=== PATIENT | female | born 1990 | race African-American/Black ===

== ENCOUNTER 2016-08-31 02:57 | Observation (INO) | payer BC, MEDICAID ==
[2016-08-31] VITALS (148 sets, daily range): BP systolic 81–115; BP diastolic 35–69; PULSE 86–116; RESP 16–18; TEMP 98.2–98.8
[~2016-08-31 02:57] MED LIST: MACR100C2 PO; TRICTAB PO
[2016-08-31] MEDS: LACTATED RINGER'S 1000 ML INJ 1,000 ML IV SCH ×3 (03:34→10:52)
[2016-08-31] MEDS ORDERED: TERBUTALINE INJ 1 MG/ML AMP SQ PRN (03:45)
[2016-08-31] MEDS ORDERED: PROCHLORPERAZINE INJ 10 MG/2 ML VIAL IV PUSH ONE (03:45)
[2016-08-31] MEDS ORDERED: ONDANSETRON HCL 4 MG/2 ML VIAL IV ONE (03:45)
[2016-08-31 04:36] LABS: BACTERIA, URINE OCC /hpf; BLOOD, URINE NEG (NEG); COMMENT (UR) CULT NOT INDICATED; CULTURE IF INDICATED CULT NOT INDICATED; GLUCOSE,URINE NEG (NEG); GRANULAR CAST, URINE 6 /lpf; HYALINE CAST, URINE 1 /lpf (RARE); KETONE, URINE NEG (NEG); MUCUS URINE FEW /lpf (OCC); NITRITE,URINE NEG (NEG); SQUAMOUS EPITHELIAL CELL URINE 7 /hpf (0-5); URINE COLOR YELLOW (YELLW/STRAW)
[2016-08-31] MEDS ORDERED: PROM25TA5 PO (05:08)
[2016-08-31] MEDS ORDERED: PROM1SUP7 RECTAL (05:08)
--- NOTE | 2016-08-31 05:08 | PD ---
HPI Chief Complaint Nausea and vomiting abdominal pain in a twin gestation Date Seen: Aug 31, 2016 Time Seen: 03:30 Travel History International Travel<30 Days: No Contact w/Intl Traveler<30Days: No Known Affected Area: No History of Present Illness HPI Patient is 26-year-old black female 25 weeks twins PCS[2] seen by Kathie Oropeza for care, who presents complaining of nausea and vomiting since about 1 AM and abdominal pain since same, no vaginal bleeding or leakage of fluid, babies are active, heart rate tracings are reactive 25 weeks, she is deepak every 3 minutes Para: 2 : 3 History Obstetric History Obstetric History 2 C-sections, history of at 36 weeks Past Surgical History Narrative Surgical 2 C-sections Family History Family History: Negative Social History Alcohol Use: No Tobacco Use: No Substance Abuse: No Allergies-Medications (Allergen,Severity, Reaction): Coded Allergies: Adhesives (Verified Allergy, Severe, 04/22/16) Latex (Verified Allergy, Severe, 04/22/16) Home Meds Active Scripts Promethazine Supp (Phenergan Supp)25 Mg Supp25 Mg RECTAL Q6H PRN (NAUSEA OR VOMITING) #6 SUPP Ref 0 Prov:Russell Vallejo II, MD 08/31/16 Promethazine (Phenergan)25 Mg Tab25 Mg PO Q6H PRN (Nausea/Vomiting) #30 TAB Ref 0 Prov:Russell Vallejo II, MD 08/31/16 Vit-Ferrous Fumarate ()1 Tab Tab1 Tab PO DAILY #30 TAB Ref 0 Prov:Griselda Holguin MD 04/22/16 Nitrofurantoin Monohydrate Macrocrystals (Macrobid)100 Mg [id number] Mg PO BID 7 Days Ref 0 Prov:Griselda Holguin MD 04/22/16 Nitrofurantoin Monohydrate Macrocrystals (Macrobid)100 Mg [id number] Mg PO BID 7 Days Ref 0 Prov:Shamika Cardoso DO 03/31/16 Review of Systems General / Constitutional: No: Fever, Weight Gain, Chills, Other Eyes: No: Diploplia, Blurred Vision, Visual changes, Pain, Photophobia HENT: No: Headaches, Vertigo, Lightheadedness Cardiovascular: No: Irregular Rhythm, Chest Pain or Discomfort, Palpitations, Tachycardia, Syncope, Varicosities, Edema, Cyanosis Respiratory: No: Cough, Short of Breath, Other Gastrointestinal: Nausea, Vomiting, Abdominal Pain, No: Diarrhea Genitourinary: No: Decreased Urinary Output, Oliguria Musculoskeletal: No: Limited ROM, Weakness, Cramping, Edema, Pain Skin: No Rash, No Itching, No Dryness, No Lumps, No Change in Pigmentation, No Change in Nails, No Alopecia, No Lesions Neurologic: No: Weakness, Dizziness, Syncope, Focal Abnormalities, Coordination Problem, Headache, Slurred Speech, Seizures Psychiatric: No: Depression, Suicidal Ideations, Homicidal Ideation Endocrine: No: Heat Intolerance, Cold Intolerance, Polydipsia, Polyuria, Other Physical Exam Vital Signs Date Time Temp Pulse Resp B/P Pulse Ox O2 Delivery O2 Flow Rate FiO2 08/31/16 04:15 98.4 08/31/16 03:24 95 101/69 Narrative GENERAL: Well-nourished, well-developed patient. SKIN: Warm and dry. HEAD: Normocephalic and atraumatic. EYES: No scleral icterus. No injection or drainage. ENT: No nasal drainage noted. Mucous membranes pink. Airway patent. NECK: Supple, trachea midline. No JVD. CARDIOVASCULAR: Regular rate and rhythm without murmurs, gallops, or rubs. RESPIRATORY: Breath sounds equal bilaterally. No accessory muscle use. BREASTS: Bilateral exam showed no masses , no retractions, no nipple discharge. ABDOMEN/GI: Abdomen soft, non-tender, bowel sounds present, no rebound, no guarding Gravid to [-30] weeks size Fundal Height: [30-] GENITOURINARY: External Genitalia: intact and normal in appearance BUS glands: [-] Cervix: [-Closed] Dilatation: [-] Closed Effacement: [-] Thick Station: [-3] Membranes: [intact ] Uterine Contractions: [q 3 min-] FHT's: Category: [1-] Baseline: [133/135] Reactive: [yes-] Variability: [mod-] Decels: [-none] EXTREMITIES: No cyanosis or edema. BACK: Nontender without obvious deformity. No CVA tenderness. NEUROLOGICAL: Awake and alert. Motor and sensory grossly within normal limits. Five out of 5 muscle strength in all muscle groups. Normal speech. Data Data Orders Vital Signs (Adult) .ON ADMISSION (08/31/16 03:34) ^ Labor Status (08/31/16 03:34) Urinalysis - C+S If Indicated (08/31/16 03:34) Fibronectin (08/31/16 03:34) Lactated Ringer's 1000 Ml Inj (Lr 1000 M (08/31/16 03:34) Ondansetron Inj (Zofran Inj) (08/31/16 03:45) Terbutaline Inj (Brethine Inj) (08/31/16 03:45) Fentanyl Inj (Fentanyl Inj) (08/31/16 03:45) Prochlorperazine Inj (Compazine Inj) (08/31/16 03:45) Labs Laboratory Tests Test 08/31/16 08/31/16 03:40 03:55 Urine Color YELLOW Urine Turbidity CLOUDY Urine pH 6.0 Urine Specific [place] 1.027 Urine Protein 30 Urine Glucose (UA) NEG Urine Ketones NEG Urine Occult Blood NEG Urine Nitrite NEG Urine Bilirubin NEG Urine Urobilinogen LESS THAN 2.0 Urine Leukocyte Esterase MOD Urine RBC 2 Urine WBC 6 Urine Squamous Epithelial 7 Cells Urine Bacteria OCC Urine Hyaline Casts 1 Urine Granular Casts 6 Urine Mucus FEW Urine Yeast (Budding) RARE Microscopic Urinalysis Comment CULT NOT INDICATED Fibronectin NEGATIVE MDM Interpretation(s) The patient is 26-year-old black female previous 2 at 25 weeks with twin gestation she is followed by Kathie Oropeza for care, she presents complaining of nausea and vomiting and abdominal pain since about 1 AM today, no bleeding or ruptured membranes noted, she is deepak every 3 minutes. Plan Plan for the patient was tocolyse contractions seen, she was given IV liter of fluid, subcutaneous terbutaline 2 doses, IV Zofran and Compazine for her stomach. Patient refused IV narcotic. Contractions have diminished greatly with these measures and her fibronectin is negative, however contractions persist even though they are small would plan to continue to tocolyse as needed. If contractions decreased to the level patient be discharged home she will go home with Phenergan by mouth and suppository for nausea and vomiting, bedrest as much as possible, increased oral hydration at home use Tylenol liberally for discomfort. Heating pad on lower abdomen or hot bath would be helpful Diagnosis Diagnosis: Primary Impression: Twin Additional Impressions: Nausea and vomiting during Threatened labor Scripts Promethazine Supp (Phenergan Supp)25 Mg Supp25 Mg RECTAL Q6H PRN (NAUSEA OR VOMITING) #6 SUPP Ref 0 Prov:Russell Vallejo II, MD 08/31/16 Promethazine (Phenergan)25 Mg Tab25 Mg PO Q6H PRN (Nausea/Vomiting) #30 TAB Ref 0 Prov:Russell Vallejo II, MD 08/31/16 Russell Vallejo II, MD Aug 31, 2016 05:08
[2016-08-31] MEDS: NIFEdipine 10 MG CAP PO SCH ×2 (05:45→06:05)
[2016-08-31] MEDS ORDERED: LACTATED RINGER'S 1000 ML INJ 1,000 ML IV SCH ×2 (06:39→06:45)
[2016-08-31] MEDS ORDERED: MAGNESIUM SULFATE 40 GM PREMIX 1,000 ML IV SCH (06:39)
[2016-08-31] MEDS ORDERED: MAGNESIUM SULFATE 4 GM PREMIX 100 ML IV ONE (06:45)
[2016-08-31] MEDS ORDERED: ACETAMINOPHEN 325 MG TAB PO PRN (06:45)
[2016-08-31] MEDS ORDERED: CALCIUM GLUCONATE 10% 1 GM/10 ML VIAL IV PRN ×3 (06:45→07:30)
[2016-08-31] MEDS ORDERED: SODIUM CHLORIDE 0.9% FLUSH 10 ML FLUSH IV FLUSH PRN ×3 (06:45→07:30)
[2016-08-31] MEDS ORDERED: ONDANSETRON HCL 4 MG/2 ML VIAL IV PRN (06:45)
[2016-08-31] MEDS ORDERED: BETAMETHASONE SOD PHOS/ACETATE SUSP 30 MG/5 ML VIAL IM SCH (06:45)
--- NOTE | 2016-08-31 06:52 | HHI.HP ---
History & Physical H&P Patient Name: Anastacio Sun Unit Number: [id number] Date of : 1990 Patient Status: Registered Emergency Room Attending Doctor: Russell Vallejo II, MD HPI HPI Chief Complaint Nausea and vomiting abdominal pain in a twin gestation Date Seen: Aug 31, 2016 Time Seen: 03:30 Travel History International Travel<30 Days: No Contact w/Intl Traveler<30Days: No Known Affected Area: No History of Present Illness HPI Patient is 26-year-old black female 25 weeks twins PCS[2] seen by Kathie Oropeza for care, who presents complaining of nausea and vomiting since about 1 AM and abdominal pain since same, no vaginal bleeding or leakage of fluid, babies are active, heart rate tracings are reactive 25 weeks, she is deepak every 3 minutes Para: 2 : 3 History (Limited) History Obstetric History Obstetric History 2 C-sections, history of at 36 weeks Past Surgical History Narrative Surgical 2 C-sections Family History Family History: Negative Social History Alcohol Use: No Tobacco Use: No Substance Abuse: No Allergies-Medications Allergies-Medications (Allergen,Severity, Reaction): Coded Allergies: Adhesives (Verified Allergy, Severe, 04/22/16) Latex (Verified Allergy, Severe, 04/22/16) Home Meds Active Scripts Vit-Ferrous Fumarate ()1 Tab Tab1 Tab PO DAILY #30 TAB Ref 0 Prov:Griselda Holguin MD 04/22/16 Nitrofurantoin Monohydrate Macrocrystals (Macrobid)100 Mg [id number] Mg PO BID 7 Days Ref 0 Prov:Griselda Holguin MD 04/22/16 Nitrofurantoin Monohydrate Macrocrystals (Macrobid)100 Mg [id number] Mg PO BID 7 Days Ref 0 Prov:Shamika Cardoso DO 03/31/16 ROS Review of Systems General / Constitutional: No: Fever, Weight Gain, Chills, Other Eyes: No: Diploplia, Blurred Vision, Visual changes, Pain, Photophobia HENT: No: Headaches, Vertigo, Lightheadedness Cardiovascular: No: Irregular Rhythm, Chest Pain or Discomfort, Palpitations, Tachycardia, Syncope, Varicosities, Edema, Cyanosis Respiratory: No: Cough, Short of Breath, Other Gastrointestinal: Nausea, Vomiting, Abdominal Pain, No: Diarrhea Genitourinary: No: Decreased Urinary Output, Oliguria Musculoskeletal: No: Limited ROM, Weakness, Cramping, Edema, Pain Skin: No Rash, No Itching, No Dryness, No Lumps, No Change in Pigmentation, No Change in Nails, No Alopecia, No Lesions Neurologic: No: Weakness, Dizziness, Syncope, Focal Abnormalities, Coordination Problem, Headache, Slurred Speech, Seizures Psychiatric: No: Depression, Suicidal Ideations, Homicidal Ideation Endocrine: No: Heat Intolerance, Cold Intolerance, Polydipsia, Polyuria, Other Physical Exam Physical Exam Vital Signs Date Time Temp Pulse Resp B/P Pulse Ox O2 Delivery O2 Flow Rate FiO2 08/31/16 04:15 98.4 08/31/16 03:24 95 101/69 Narrative GENERAL: Well-nourished, well-developed patient. SKIN: Warm and dry. HEAD: Normocephalic and atraumatic. EYES: No scleral icterus. No injection or drainage. ENT: No nasal drainage noted. Mucous membranes pink. Airway patent. NECK: Supple, trachea midline. No JVD. CARDIOVASCULAR: Regular rate and rhythm without murmurs, gallops, or rubs. RESPIRATORY: Breath sounds equal bilaterally. No accessory muscle use. BREASTS: Bilateral exam showed no masses , no retractions, no nipple discharge. ABDOMEN/GI: Abdomen soft, non-tender, bowel sounds present, no rebound, no guarding Gravid to [-30] weeks size Fundal Height: [30-] GENITOURINARY: External Genitalia: intact and normal in appearance BUS glands: [-] Cervix: [-Closed] Dilatation: [-] Closed Effacement: [-] Thick Station: [-3] Membranes: [intact ] Uterine Contractions: [q 3 min-] FHT's: Category: [1-] Baseline: [133/135] Reactive: [yes-] Variability: [mod-] Decels: [-none] EXTREMITIES: No cyanosis or edema. BACK: Nontender without obvious deformity. No CVA tenderness. NEUROLOGICAL: Awake and alert. Motor and sensory grossly within normal limits. Five out of 5 muscle strength in all muscle groups. Normal speech. Data Data Data Orders Vital Signs (Adult) .ON ADMISSION (08/31/16 03:34) ^ Labor Status (4/13/17 03:34) Urinalysis - C+S If Indicated (08/31/16 03:34) Fibronectin (08/31/16 03:34) Lactated Ringer's 1000 Ml Inj (Lr 1000 M (08/31/16 03:34) Ondansetron Inj (Zofran Inj) (08/31/16 03:45) Terbutaline Inj (Brethine Inj) (08/31/16 03:45) Fentanyl Inj (Fentanyl Inj) (08/31/16 03:45) Prochlorperazine Inj (Compazine Inj) (08/31/16 03:45) Labs Laboratory Tests Test 08/31/16 08/31/16 03:40 03:55 Urine Color YELLOW Urine Turbidity CLOUDY Urine pH 6.0 Urine Specific [place] 1.027 Urine Protein 30 Urine Glucose (UA) NEG Urine Ketones NEG Urine Occult Blood NEG Urine Nitrite NEG Urine Bilirubin NEG Urine Urobilinogen LESS THAN 2.0 Urine Leukocyte Esterase MOD Urine RBC 2 Urine WBC 6 Urine Squamous Epithelial 7 Cells Urine Bacteria OCC Urine Hyaline Casts 1 Urine Granular Casts 6 Urine Mucus FEW Urine Yeast (Budding) RARE Microscopic Urinalysis Comment CULT NOT INDICATED Fibronectin NEGATIVE MDM MDM Interpretation(s) The patient is 26-year-old black female previous 2 at 25 weeks with twin gestation she is followed by Kathie Oropeza for care, she presents complaining of nausea and vomiting and abdominal pain since about 1 AM today, no bleeding or ruptured membranes noted, she is deepak every 3 minutes. Plan Plan for the patient was tocolyse contractions seen, she was given IV liter of fluid, subcutaneous terbutaline 2 doses, IV Zofran and Compazine for her stomach. Patient refused IV narcotic. Contractions have diminished greatly with these measures and her fibronectin is negative, however contractions persist even though they are small would plan to continue to tocolyse as needed. Unfortunately CTXs have persisted inspitee of IVF, Terb, procardia po therefore admission and Mag sulfate tocolysis indicated Diagnosis Diagnosis: Primary Impression: Twin Additional Impressions: Nausea and vomiting during Threatened labor Scripts Promethazine Supp (Phenergan Supp)25 Mg Supp25 Mg RECTAL Q6H PRN (NAUSEA OR VOMITING) #6 SUPP Ref 0 Prov:Russell Vallejo II, MD 08/31/16 Promethazine (Phenergan)25 Mg Tab25 Mg PO Q6H PRN (Nausea/Vomiting) #30 TAB Ref 0 Prov:Russell Vallejo II, MD 08/31/16 Russell Vallejo II, MD Aug 31, 2016 05:08 Russell Vallejo II, MD Aug 31, 2016 06:52
[2016-08-31 07:46] LABS: AUTOMATED NEUTROPHIL # 7.9 TH/MM3 (1.8-7.7); BASOPHIL % 0.1 % (0.0-2.0); EOSINOPHIL % 0.3 % (0.0-4.0); HEMATOCRIT 29.4 % (35.0-46.0); HEMO FLAGS DIFF FINAL; LYMPH % 11.4 % (9.0-44.0); LYMPHOCYTE # 1.1 TH/MM3 (1.0-4.8); MEAN CELL VOLUME 82.5 FL (80.0-100.0); MONO % 8.4 % (0.0-8.0); NEUT % 79.8 % (16.0-70.0); PLATELET COUNT 124 TH/MM3 (150-450); RED BLOOD COUNT 3.57 MIL/MM3 (4.00-5.30); RED CELL DISTRIBUTION WIDTH 12.9 % (11.6-17.2); WHITE BLOOD COUNT 9.9 TH/MM3 (4.0-11.0)
[2016-08-31 08:05] LABS: AMPHETAMINE, URINE NEG (NEG); BARBITURATES, URINE NEG (NEG); COCAINE, URINE NEG (NEG)
[2016-08-31] MEDS ORDERED: SODIUM CHLORIDE 0.9% FLUSH 10 ML FLUSH IV FLUSH SCH ×3 (09:00)
[2016-08-31] MEDS: AMPICILLIN INJ 2,000 MG in SODIUM CHLORIDE 0.9% INJ 100 ML IV SCH ×2 (12:57→18:05)
--- NOTE | 2016-08-31 15:01 | PD.LABORPN ---
Subjective Subjective pt doing well. on Mag at 3g/hour. denies feeling contractions. +FM no vag bleeding Objective Vital Signs Vital Signs Date Time Temp Pulse Resp B/P Pulse Ox O2 Delivery O2 Flow Rate FiO2 08/31/16 14:00 86 08/31/16 14:00 94 103/55 08/31/16 13:55 95 08/31/16 13:54 18 08/31/16 13:50 95 08/31/16 13:45 97 08/31/16 13:45 95 08/31/16 13:40 92 08/31/16 13:35 99 08/31/16 13:35 95 08/31/16 13:30 98 08/31/16 13:30 100 08/31/16 13:25 98 08/31/16 13:25 98 08/31/16 13:20 100 08/31/16 13:15 92 08/31/16 13:10 97 08/31/16 13:05 108 08/31/16 13:03 16 08/31/16 13:00 98 08/31/16 13:00 95 83/35 08/31/16 12:55 95 08/31/16 12:50 97 08/31/16 12:45 98 08/31/16 12:40 96 08/31/16 12:35 94 08/31/16 12:30 98 08/31/16 12:25 100 08/31/16 12:20 100 08/31/16 12:15 96 08/31/16 12:10 94 08/31/16 12:05 93 08/31/16 12:00 97 87/37 08/31/16 12:00 94 08/31/16 11:55 99 08/31/16 11:50 96 08/31/16 11:49 16 08/31/16 11:45 109 08/31/16 11:40 99 08/31/16 11:35 100 08/31/16 11:30 100 08/31/16 11:25 103 08/31/16 11:20 107 08/31/16 11:15 98 08/31/16 11:10 99 08/31/16 11:05 95 08/31/16 11:00 96 08/31/16 11:00 93 81/43 08/31/16 11:00 94 4/13/17 10:58 16 17 10:55 89 17 10:50 98 17 10:50 100 17 10:45 102 17 10:40 99 17 10:40 99 08/31/17 10:35 100 17 10:35 100 17 10:30 96 17 10:30 95 17 10:30 96 84/47 17 10:25 95 17 10:25 96 17 10:20 100 17 10:20 98 17 10:15 96 17 10:15 93 08/31/16 10:15 96 93/44 17 10:10 95 08/31/16 10:10 94 08/31/16 10:05 96 08/31/16 10:05 95 08/31/16 10:00 96 84/42 17 10:00 98 08/31/16 10:00 93 17 09:55 104 08/31/16 09:55 104 08/31/16 09:50 98 08/31/16 09:50 96 08/31/16 09:45 94 08/31/16 09:45 94 83/39 17 09:45 98 08/31/16 09:40 98 08/31/16 09:40 98 08/31/16 09:38 16 08/31/16 09:35 91 08/31/16 09:35 91 17 09:30 87 17 09:30 87 92/58 17 09:30 92 08/31/16 09:25 94 08/31/16 09:25 95 08/31/16 09:20 96 08/31/16 09:20 96 08/31/16 09:15 95 87/37 08/31/16 09:15 98 08/31/16 09:15 96 08/31/16 09:10 104 08/31/16 09:10 104 08/31/16 09:05 97 08/31/16 09:05 16 08/31/16 09:05 98 08/31/16 09:00 90 08/31/16 09:00 95 16 98/53 08/31/16 09:00 98.4 08/31/16 09:00 100 08/31/16 08:55 96 08/31/16 08:55 95 08/31/16 08:52 92 101/59 08/31/16 08:50 99 08/31/16 07:10 116 08/31/16 07:05 116 08/31/16 07:00 114 Objective Pelvic Exam: Cervix: [posterior/firm] Dilatation: closed Effacement: 0 Station: -3 Presentation: ceph A Membranes: intact Uterine Contractions: irritability with irregular contractions FHT's: Category: 1 for A and B Assessment/Plan Assessment and Plan 26 y/o with twin IUP at 25.5 wks 1. contractions--persistent contractions despite hydration, terbutaline, and now Magnesium tocolysis. however, cervix is closed, FFN is neg , and pt is not feeling contractions. there is no evidence of PTL at this time. will decrease magnesium to 2g/hour and continue to monitor 2. prematurity--s/p 1/2 BMS, u/s shows A ceph 1094g, B breech 1212g, mild poly for both 3. previous CD x 2 Alonzo Lopez MD Aug 31, 2016 15:01
[2016-09-01] VITALS (29 sets, daily range): BP systolic 79–105; BP diastolic 33–52; PULSE 88–103; RESP 16–18; TEMP 97.6–98.1
[2016-09-01] MEDS: AMPICILLIN INJ 2,000 MG in SODIUM CHLORIDE 0.9% INJ 100 ML IV SCH ×4 (06:00→12:37)
[2016-09-01] MEDS: LACTATED RINGER'S 1000 ML INJ 1,000 ML IV SCH (06:21)
--- NOTE | 2016-09-01 09:11 | HHI.DCPOC ---
Discharge Care Plan Diagnosis: (1) Nausea and vomiting during (2) Twin (3) contractions Report Symptoms to Your Doctor -Temperate above 100.5 degrees -Redness, of incision or excessive or foul smelling drainage -Unusual pain or calf pain -Increased vaginal bleeding -Painful or difficulty urinating -Feelings of extreme sadness or anxiety after 2 weeks Goals to Promote Your Health * To prevent worsening of your condition and complications * To maintain your health at the optimal level Directions to Meet Your Goals Take your medications as prescribed Follow your dietary instruction Follow activity as directed Ensure plenty of rest for recovery Drink fluids for hydration Keep your appointments as scheduled Take your immunizations and boosters as scheduled If your symptoms worsen call your PCP, if no PCP go to Urgent Care Center or Emergency Room Smoking is Dangerous to Your Health. Avoid second hand smoke Call the 24-hour crisis hotline for domestic abuse at Reshma Fierro MD R1 Sep 01, 2016 09:11
--- NOTE | 2016-09-01 09:13 | PD.OB.ANTE ---
Subjective Diagnosis: (1) Twin Diagnosis: Secondary (2) contractions Diagnosis: Principal Interval History Mrs. Sun was afebrile with stable vital signs overnight; patient denies complaints this morning. Patient is not feeling any abdominal pain suggestive of contractions. No shortness of breath or dysuria reported. No calf pain. ( Severino Ward MD R2) Objective Vital Signs Vital Signs Date Time Temp Pulse Resp B/P Pulse Ox O2 Delivery O2 Flow Rate FiO2 09/01/16 07:00 92 09/01/16 07:00 91 90/45 09/01/16 06:55 93 09/01/16 06:50 92 09/01/16 06:45 94 09/01/16 06:40 103 09/01/16 06:30 92 09/01/16 06:25 95 09/01/16 06:20 96 09/01/16 06:15 93 09/01/16 06:10 97 09/01/16 06:05 18 09/01/16 06:05 94 09/01/16 06:00 99 86/41 09/01/16 05:05 18 09/01/16 05:00 94 82/36 09/01/16 04:17 93 95/44 09/01/16 04:00 90 79/33 09/01/16 03:47 18 09/01/16 03:45 88 09/01/16 03:40 91 09/01/16 03:34 94 09/01/16 03:34 94/42 09/01/16 03:05 18 09/01/16 03:05 97.6 09/01/16 03:00 93 87/35 09/01/16 02:05 18 09/01/16 02:00 92 105/52 09/01/16 01:05 18 09/01/16 01:00 97 101/45 09/01/16 00:05 18 09/01/16 00:00 102 91/45 08/31/16 23:05 98.8 18 08/31/16 23:00 92 94/40 08/31/16 22:05 18 08/31/16 22:00 95 97/46 08/31/16 21:05 18 08/31/16 21:00 92 105/58 08/31/16 20:00 98 104/55 08/31/16 19:35 103 08/31/16 19:34 18 08/31/16 19:30 102 08/31/16 19:25 98 08/31/16 19:00 99 08/31/16 19:00 96 115/60 08/31/16 18:55 99 08/31/16 18:52 18 08/31/16 18:50 102 08/31/16 18:45 99 08/31/16 18:40 99 08/31/16 18:35 99 08/31/16 18:30 96 08/31/16 18:25 101 08/31/16 18:20 98 08/31/16 18:15 99 08/31/16 18:10 102 08/31/16 18:05 96 08/31/16 18:03 18 08/31/16 18:00 96 08/31/16 18:00 110/64 08/31/16 18:00 97 08/31/16 17:55 96 08/31/16 17:50 103 08/31/16 17:45 100 08/31/16 17:40 98 08/31/16 17:35 97 08/31/16 17:30 101 08/31/16 17:25 99 08/31/16 17:20 96 08/31/16 17:15 99 08/31/16 17:10 101 08/31/16 17:05 99 08/31/16 17:05 18 08/31/16 17:00 94 100/58 08/31/16 17:00 99 08/31/16 16:55 98 08/31/16 16:50 95 08/31/16 16:45 95 08/31/16 16:40 95 08/31/16 16:35 96 08/31/16 16:30 99 08/31/16 16:25 101 08/31/16 16:20 99 08/31/16 16:15 102 08/31/16 16:10 100 08/31/16 16:05 92 08/31/16 16:04 18 08/31/16 16:00 99 08/31/16 16:00 94 106/55 08/31/16 15:55 97 17 15:50 91 17 15:45 91 17 15:40 94 17 15:35 95 4/13/17 15:30 95 1317 15:25 101 17 15:20 95 17 15:15 98 17 15:10 97 17 15:05 108 17 15:00 97 114/68 17 15:00 96 17 14:55 98 08/31/16 14:55 98.2 18 08/31/16 14:50 99 17 14:45 99 17 14:40 97 17 14:35 98 17 14:30 98 17 14:25 98 08/31/16 14:20 106 08/31/16 14:15 101 08/31/16 14:10 94 08/31/16 14:05 93 08/31/16 14:00 86 08/31/16 14:00 94 103/55 17 13:55 95 17 13:54 18 08/31/16 13:50 95 17 13:45 97 17 13:45 95 17 13:40 92 17 13:35 99 17 13:35 95 17 13:30 98 17 13:30 100 17 13:25 98 17 13:25 98 17 13:20 100 17 13:15 92 17 13:10 97 17 13:05 108 08/31/16 13:03 16 08/31/16 13:00 98 17 13:00 95 83/35 17 12:55 95 17 12:50 97 17 12:45 98 1317 12:40 96 17 12:35 94 17 12:30 98 13/17 12:25 100 17 12:20 100 17 12:15 96 17 12:10 94 17 12:05 93 17 12:00 97 87/37 1317 12:00 94 08/31/16 11:55 99 08/31/16 11:50 96 08/31/16 11:49 16 17 11:45 109 17 11:40 99 17 11:35 100 17 11:30 100 17 11:25 103 08/31/16 11:20 107 08/31/16 11:15 98 08/31/16 11:10 99 08/31/16 11:05 95 08/31/16 11:00 96 08/31/16 11:00 93 81/43 08/31/16 11:00 94 08/31/16 10:58 16 08/31/16 10:55 89 08/31/16 10:50 98 08/31/16 10:50 100 08/31/16 10:45 102 08/31/16 10:40 99 08/31/16 10:40 99 08/31/16 10:35 100 08/31/16 10:35 100 08/31/16 10:30 96 08/31/16 10:30 95 17 10:30 96 84/47 17 10:25 95 08/31/16 10:25 96 08/31/16 10:20 100 08/31/16 10:20 98 08/31/16 10:15 96 08/31/16 10:15 93 08/31/16 10:15 96 93/44 08/31/16 10:10 95 08/31/16 10:10 94 08/31/16 10:05 96 08/31/16 10:05 95 08/31/16 10:00 96 84/42 08/31/16 10:00 98 08/31/16 10:00 93 08/31/16 09:55 104 08/31/16 09:55 104 08/31/16 09:50 98 08/31/16 09:50 96 08/31/16 09:45 94 08/31/16 09:45 94 83/39 17 09:45 98 08/31/16 09:40 98 08/31/16 09:40 98 08/31/16 09:38 16 08/31/16 09:35 91 08/31/16 09:35 91 4/13/17 09:30 87 08/31/16 09:30 87 92/58 08/31/16 09:30 92 08/31/16 09:25 94 08/31/16 09:25 95 08/31/16 09:20 96 08/31/16 09:20 96 08/31/16 09:15 95 87/37 08/31/16 09:15 98 08/31/16 09:15 96 Intake & Output 09/01/16 09/01/16 07:00 19:00 Intake Total 1096 ml Balance 1096 ml Intake IV Total 1096 ml Physical Exam GENERAL: Well-nourished, well-developed patient. CARDIOVASCULAR: Regular rate and rhythm without murmurs RESPIRATORY: CTAB, normal rate EXTREMITIES: No cyanosis or edema, non-tender, without signs of DVT. ABDOMEN/GI: Abdomen soft, non-tender. Gravid Pelvic Exam: (399) Cervix: posterior/firm Dilatation: closed Effacement: 0 Station: -3 Presentation: cephalic A Membranes: intact Uterine Contractions: irritability with irregular contractions FHT's: Category: 1 for A and B (Severino Ward MD R2) Assessment and Plan Problem List: (1) contractions Status: Acute (2) Twin Status: Acute Assessment & Plan: 26 y/o with twin IUP at 25.6 wks 1. contractions Impression: No evidence of PTL at this time. Persistent contractions ( patient not feeling contractions) on EFM despite hydration, terbutaline, and Magnesium tocolysis. Cervix is closed, FFN is neg. -Magnesium decreased to 2gm/hr -Continue Ampicillin q6hrs 2. prematurity -Patient has received 2 doses Betamethasone 12mg (08/31 at 0915 , 09/01 at 0627) 3. Twins- US 08/31- A (presenting)- cephalic, 1094g, size appropriate. 3 vessel. No previa. Mild Poly B- Breech, 1212g, size appropriate, 3 vessel, mild Poly 4. Previous CD x 2 (Severino Ward MD R2) Assessment and Plan The exam, history, and the medical decision-making described in the above note were completed with the assistance of the resident provider. I reviewed and agree with the findings presented. I attest that I had a [id number] encounter with the patient on the same day, and personally performed and documented my assessment and findings in the medical record. Plan: repeat exam after BMS completed. If cervix unchanged, d/c mag and monitor patient. If no evidence of PTL, d/c home. (Alonzo Lopez MD) Severino Ward MD R2 Sep 01, 2016 09:13 Alonzo Lopez MD Sep 01, 2016 11:23
[2016-09-01] MEDS ORDERED: PROM25TA5 PO (09:15)
[2016-09-04 08:25] LABS: BATH SALTS (MDPV) UR NEG (NEG); ECSTASY (MDMA) UR NEG (NEG); GABAPENTIN UR NEG (NEG); HEROIN (6-ACETYLMORPHINE) UR NEG (NEG); HYDROMORPHONE U NEG (NEG); K2 SPICE UR NEG (NEG); OBMETHADONE UR NEG (NEG); OXYCODONE (PERCODAN) NEG (NEG); PHENCYCLIDINE URINE NEG (NEG)
== END 2016-09-01 15:29 | disposition home or self-care (01) ==
LOC: HOBED 02:57 → H2EB 06:45
PROVIDERS: ADMIT Obstetrics & Gynecology Maternal & Fetal Medicine; ATTEND Obstetrics & Gynecology Maternal & Fetal Medicine
DX: O47.02 False labor before 37 completed weeks of gestation, second trimester (principal); O21.2 Late vomiting of pregnancy; O30.002 Twin pregnancy, unspecified number of placenta and unspecified number of amniotic sacs, second trimester; O34.219 Maternal care for unspecified type scar from previous cesarean delivery; Z3A.25 25 weeks gestation of pregnancy; Z91.040 Latex allergy status
CPT/HCPCS: 76811; 76812; 76817; 80307; 80348; 81001; 82731; 85025; 96361; 96372; 96374; 99285; G0378; G0481; J0290; J0702; J0780; J2405; J3105; J3475; J7120; G0480

== ENCOUNTER 2016-10-12 08:26 | Emergency (ER) | payer BC, MEDICAID ==
[~2016-10-12] VITALS: Ht 165.1 cm; Wt 68.5 kg
[~2016-10-12 08:26] MED LIST changes: -MACR100C2 PO; +PROM25TA5 PO
[2016-10-12 10:13] LABS: BACTERIA, URINE OCC /hpf; BLOOD, URINE NEG (NEG); COMMENT (UR) CULT NOT INDICATED; CULTURE IF INDICATED CULT NOT INDICATED; GLUCOSE,URINE NEG (NEG); KETONE, URINE NEG (NEG); NITRITE,URINE NEG (NEG); SQUAMOUS EPITHELIAL CELL URINE <1 /hpf (0-5); URINE COLOR LIGHT-YELLOW (YELLW/STRAW)
[2016-10-12] MEDS ORDERED: fentaNYL CITRATE 250 MCG/5 ML AMP IV PUSH ONE (10:15)
[2016-10-12] MEDS ORDERED: LACTATED RINGER'S 1000 ML INJ 1,000 ML IV SCH (10:15)
[2016-10-12] MEDS ORDERED: TERBUTALINE INJ 1 MG/ML AMP SQ ONE (10:15)
[2016-10-12 10:33] LABS: HEMATOCRIT 29.7 % (35.0-46.0); MEAN CELL VOLUME 80.2 FL (80.0-100.0); MEAN CORPUSCULAR HEMOGLOBIN 26.2 PG (27.0-34.0); MEAN CORPUSCULAR HGB CONC 32.7 % (32.0-36.0); RED CELL DISTRIBUTION WIDTH 15.4 % (11.6-17.2); WHITE BLOOD COUNT 4.8 TH/MM3 (4.0-11.0)
[2016-10-12 10:38] LABS: AMPHETAMINE, URINE NEG (NEG); BARBITURATES, URINE NEG (NEG); COCAINE, URINE NEG (NEG)
[2016-10-12 10:59] LABS: REVIEW FLAG FINAL
--- NOTE | 2016-10-12 11:14 | PD ---
HPI Chief Complaint Pelvic pain Date Seen: October 12, 2016 Time Seen: 10:30 Travel History International Travel<30 Days: No Contact w/Intl Traveler<30Days: No Known Affected Area: No History of Present Illness HPI Patient is a 26-year-old at 35 weeks and 5 days with twin gestation and 2 prior C-sections who presents with pelvic pain and pain along her scar. Patient reports that her pelvic pain started about 2 weeks ago. She describes the pain as feeling sore. At its worst it's a 7 out of 10. During our interview, acid about a 5 out of 10. She describes this pain is exacerbated and worse with movement, especially side to side movement or standing up. Patient is also complaining of pain along her scar. She describes this pain as starting at 6 AM this morning, feeling like ripping or tearing, 7 out of 10 at its worst, currently 5 out of 10, not exacerbated by movement, not getting any better or worse. She denies any leakage of fluid or vaginal bleeding. She endorses movement. Patient was getting her care through [facility] but transferred to Dr. Patino in [place]. At first when she presented, she did not endorse any contractions. But after a few were noted on the monitor, patient reported that she was feeling the contractions. Para: 2 : 3 Last Menstrual Period: October 12, 2016 History Past Medical History Narrative Medical Patient reports a history of childhood asthma, but hasn't required any medication since 13 years old. Obstetric History Obstetric History Patient has a history of 2 prior C-sections. She was seen this here in the [facility] ED by Dr. Vallejo for nausea, vomiting, abdominal pain, found to have contractions, treated with betamethasone 2, magnesium sulfate, terbutaline, fentanyl, IV fluids. Past Surgical History Narrative Surgical 2 prior C-sections. Last April 2015. Family History Narrative Family History Patient reports a maternal history of asthma and heart murmur and thyroid problem. Social History Narrative Social History Patient reports living with her grandmother in [place]. Alcohol Use: No Tobacco Use: No Substance Abuse: No Allergies-Medications (Allergen,Severity, Reaction): Coded Allergies: Adhesives (Verified Allergy, Intermediate, Rash, 10/12/16) Latex (Verified Allergy, Mild, Rash, 10/12/16) Home Meds Active Scripts Promethazine (Phenergan)25 Mg Tab25 Mg PO Q6H PRN (Nausea/Vomiting) #30 TAB Ref 0 Prov:CamronoReshma MD R1 09/01/16 Vit-Ferrous Fumarate ()1 Tab Tab1 Tab PO DAILY #30 TAB Ref 0 Prov:Griselda Holguin MD 04/22/16 Review of Systems General / Constitutional: No: Fever, Chills Eyes: No: Blurred Vision, Visual changes HENT: No: Headaches Cardiovascular: No: Chest Pain or Discomfort Respiratory: No: Short of Breath Gastrointestinal: Abdominal Pain, No: Nausea, Vomiting Genitourinary: No: Dysuria Neurologic: No: Headache Physical Exam Afebrile and vital signs stable. Narrative GENERAL: Well-nourished, well-developed patient. SKIN: Warm and dry. HEAD: Normocephalic and atraumatic. EYES: No scleral icterus. No injection or drainage. ENT: No nasal drainage noted. Mucous membranes pink. Airway patent. NECK: Supple, trachea midline. No JVD. CARDIOVASCULAR: Regular rate and rhythm without murmurs, gallops, or rubs. RESPIRATORY: Breath sounds equal bilaterally. No accessory muscle use. ABDOMEN/GI: Abdomen soft, non-tender, bowel sounds present, no rebound, no guarding Gravid to 35 weeks size GENITOURINARY: External Genitalia: intact and normal in appearance Dilatation: Closed Effacement: Thick Station: -3 Presentation: Infant a vertex infant B transverse back up Membranes: Intact Uterine Contractions: q3-4min FHT's: Category: Both babies with category 1 tracings Baseline: Both babies Baseline heart rate in the 140s Reactive: Reactive Variability: Moderate Decels: None EXTREMITIES: No cyanosis or edema. BACK: Nontender without obvious deformity. No CVA tenderness. NEUROLOGICAL: Awake and alert. Motor and sensory grossly within normal limits. Five out of 5 muscle strength in all muscle groups. Normal speech. Data Data Vital Signs Reviewed: Yes Orders Urinalysis - C+S If Indicated (10/12/16 09:49) Vital Signs (Adult) .ON ADMISSION (10/12/16 10:08) ^ Labor Status (10/12/16 10:08) ^ Hydration (10/12/16 10:08) Cbc No Diff, Includes Plts (10/12/16 10:08) Type And Screen (10/12/16 10:08) Fibronectin (10/12/16 10:08) Drug Screen, Random Urine (10/12/16 10:08) Lactated Ringer's 1000 Ml Inj (Lr 1000 M (10/12/16 10:15) Terbutaline Inj (Brethine Inj) (10/12/16 10:15) Fentanyl Inj (Fentanyl Inj) (10/12/16 10:45) Labs Laboratory Tests Test 10/12/16 10/12/16 08:50 10:06 Urine Color LIGHT-YELLOW Urine Turbidity CLEAR Urine pH 7.0 Urine Specific [place] 1.008 Urine Protein NEG Urine Glucose (UA) NEG Urine Ketones NEG Urine Occult Blood NEG Urine Nitrite NEG Urine Bilirubin NEG Urine Urobilinogen LESS THAN 2.0 Urine Leukocyte Esterase SMALL Urine WBC 4 Urine Squamous Epithelial <1 Cells Urine Bacteria OCC Microscopic Urinalysis Comment CULT NOT INDICATED Urine Opiates Screen NEG Urine Barbiturates Screen NEG Urine Amphetamines Screen NEG Urine Benzodiazepines Screen NEG Urine Cocaine Screen NEG Urine Cannabinoids Screen NEG White Blood Count 4.8 Red Blood Count 3.70 Hemoglobin 9.7 Hematocrit 29.7 Mean Corpuscular Volume 80.2 Mean Corpuscular Hemoglobin 26.2 Mean Corpuscular Hemoglobin 32.7 Concent Red Cell Distribution Width 15.4 Platelet Count Mean Platelet Volume 10.5 Fibronectin NEGATIVE Blood Type O POSITIVE Antibody Screen NEGATIVE MDM Plan Patient is a 26-year-old at 31 weeks and 5 days with twin gestation and 2 prior C-sections who presents with pelvic pain and pain along her scar. Denies bleeding or leakage of fluid. Babies are active heart rate tracing is reactive and she is deepak every 3-4 minutes. 1. pelvic pain most likely MSK pain [id number] Tylenol as needed 2. Pain along scar UA 3. Contractions noted on tocometry UA negative Terbutaline 0.25 mg subcutaneous 1 Fentanyl 25 g IV push 1 LR IV Urine drug screen fibronectin Type and screen CBC Hydration Monitor liver cirrhosis Monitor vital signs Addendum: Ultrasound done to bedside shows baby A is in a vertex position and baby B is in transverse position with back up/anterior. fibronectin done was negative, digital exam showed closed cervix. Urinalysis negative. CBC within normal limits. Patient is a s/p 1 liter of IV fluid, 1 dose subcutaneous terbutaline, and 1 dose of 25 mg fentanyl, and the contractions are noted to be decreased to essentially nonexistent. Plan to discharge patient home bedrest reason fluid intake, Tylenol liberally for pain, heating pad on lower abdomen as well. She is to follow-up with her OB provider in [place] and scheduled ultrasound. Diagnosis Diagnosis: Primary Impression: contractions Additional Impressions: Abdominal pain Abdominal pain affecting Abdominal pain affecting , antepartum Disposition: 01 DISCHARGE HOME Condition: Good Dennis Edouard MD R1 October 12, 2016 11:14
--- NOTE | 2016-10-12 11:55 | PD ---
History of Present Illness Date Seen: October 12, 2016 History of Present Illness The patient is a 26-year-old white female previous 2 at 32 weeks with twins who presents complaining of lower abdominal pain. Denies bleeding or leakage of fluid. Babies are active heart rate tracing is reactive and she is deepak every 3-4 minutes. Ultrasound done to bedside shows baby is in a vertex transverse position with a floating presenting part. fibronectin done was negative, digital exam showed closed cervix is very high is no pressure on at all in the pelvis. Urinalysis negative CBC within normal limits patient is a liter of IV fluid 1 dose subcutaneous terbutaline and 1 dose of 25 mg fentanyl, the contractions noted decreased to essentially nonexistent. Plan to discharge patient home bedrest reason fluid intake, Tylenol liberally for pain, heating pad on lower abdomen as well . She is to follow-up with her OB provider in [place] and that was scheduled ultrasound soon Russell Vallejo II, MD October 12, 2016 11:55
== END 2016-10-12 12:30 | disposition home or self-care (01) ==
LOC: HOBED 08:26
DX: O47.03 False labor before 37 completed weeks of gestation, third trimester (principal); O30.003 Twin pregnancy, unspecified number of placenta and unspecified number of amniotic sacs, third trimester; O34.219 Maternal care for unspecified type scar from previous cesarean delivery; Z3A.31 31 weeks gestation of pregnancy
CPT/HCPCS: 80307; 81001; 82731; 85027; 86850; 86900; 86901; 96372; 96374; 99284; J3010; J3105; J7120

== ENCOUNTER 2016-10-16 11:12 | Emergency (ER) | payer BC, MEDICAID ==
[2016-10-16 11:32] VITALS: BP 100/59; PULSE 100
[2016-10-16 11:35] VITALS: PULSE 89
[2016-10-16 11:40] VITALS: PULSE 102
[2016-10-16] MEDS ORDERED: LACTATED RINGER'S 1000 ML INJ 1,000 ML IV SCH (11:42)
[2016-10-16 11:45] VITALS: RESP 18
[2016-10-16] MEDS ORDERED: ONDANSETRON HCL 4 MG/2 ML VIAL IV PUSH ONE (11:45)
[2016-10-16] MEDS ORDERED: TERBUTALINE INJ 1 MG/ML AMP SQ PRN (11:45)
[2016-10-16 11:57] LABS: BACTERIA, URINE OCC /hpf; BLOOD, URINE NEG (NEG); GLUCOSE,URINE NEG (NEG); GRANULAR CAST, URINE 1 /lpf; KETONE, URINE NEG (NEG); MUCUS URINE FEW /lpf (OCC); NITRITE,URINE NEG (NEG); SQUAMOUS EPITHELIAL CELL URINE 6 /hpf (0-5); TRANSITIONAL EPI CELLS, URINE <1 /hpf; URINE COLOR YELLOW (YELLW/STRAW)
[2016-10-16 11:58] LABS: COMMENT (UR) CULT NOT INDICATED; CULTURE IF INDICATED CULT NOT INDICATED
--- NOTE | 2016-10-16 12:25 | PD ---
HPI Chief Complaint Contractions Date Seen: October 16, 2016 Time Seen: 12:00 Travel History International Travel<30 Days: No Contact w/Intl Traveler<30Days: No Known Affected Area: No History of Present Illness HPI Pt is a 26 year old with twins at 32/2 weeks gestation (CHRISTINA of ) presenting due to contractions. She reports that contractions started this morning around 2 am, and have become more painful from contraction she has felt previously. She endorses movement, denies leakage of fluid, vaginal bleeding. She experienced one episode of emesis today as well as one episode of diarrhea. She has not had significant nausea or vomiting during this . She reports that she was previously seen by Kathie Oropeza and has been following with Dr. Patino in [place]. Her last appointment was on Sunday last week, and she has an appointment scheduled for this upcoming Sunday. Para: 2 : 3 History Past Medical History Narrative Medical Asthma, hasn't taken any medications since she was 13 years old Obstetric History Obstetric History History of 2 She has been seen before in the OB ED for contractions, treated with betamethasone 2, magnesium, terbutaline, fentanyl, IV fluids Past Surgical History Narrative Surgical 2 Family History Narrative Family History Patient's mother with history of asthma, heart murmur, unspecified thyroid problem. Social History Narrative Social History She lives with her grandmother in [place]. Alcohol Use: No Tobacco Use: No Substance Abuse: No Allergies-Medications (Allergen,Severity, Reaction): Coded Allergies: Adhesives (Verified Allergy, Intermediate, Rash, 10/12/16) Latex (Verified Allergy, Mild, Rash, 10/12/16) Home Meds Active Scripts Ondansetron Odt (Zofran Odt)4 Mg Tab4 Mg SL Q8HR PRN (Nausea/Vomiting) #20 TAB Ref 0 Prov:Jean Claude Sosa MD R2 10/16/16 Terbutaline Sulfate 5 Mg Tab5 Mg PO Q6H #100 TAB Ref 0 Take every 6 hours 3 times/day Prov:Jean Claude Sosa MD R2 10/16/16 Promethazine (Phenergan)25 Mg Tab25 Mg PO Q6H PRN (Nausea/Vomiting) #30 TAB Ref 0 Prov:Reshma Fierro MD R1 09/01/16 Vit-Ferrous Fumarate ()1 Tab Tab1 Tab PO DAILY #30 TAB Ref 0 Prov:Griselda Holguin MD 04/22/16 Discontinued Scripts Terbutaline Sulfate 5 Mg Tab5 Mg PO Q6H #100 TAB Ref 0 Take every 6 hours 3 times/day Prov:Jean Claude Sosa MD R2 10/16/16 Review of Systems General / Constitutional: No: Fever, Chills Eyes: Blurred Vision HENT: Headaches Cardiovascular: No: Chest Pain or Discomfort Gastrointestinal: Nausea, Vomiting, Diarrhea, Abdominal Pain Genitourinary: No: Dysuria Skin: No Rash Neurologic: No: Syncope Psychiatric: No: Anxiety Physical Exam Vital Signs Date Time Temp Pulse Resp B/P Pulse Ox O2 Delivery O2 Flow Rate FiO2 10/16/16 11:45 18 10/16/16 11:40 102 10/16/16 11:35 89 10/16/16 11:32 100 100/59 Narrative GENERAL: Well-nourished, well-developed patient. SKIN: Warm and dry. HEAD: Normocephalic and atraumatic. EYES: No scleral icterus. No injection or drainage. ENT: No nasal drainage noted. Mucous membranes pink. Airway patent. NECK: Supple, trachea midline. No JVD. CARDIOVASCULAR: Regular rate and rhythm without murmurs, gallops, or rubs. RESPIRATORY: Breath sounds equal bilaterally. No accessory muscle use. ABDOMEN/GI: Abdomen soft, non-tender, bowel sounds present, no rebound, no guarding Twin , 32 weeks gestation GENITOURINARY: External Genitalia: intact and normal in appearance Cervix: thick, posterior Dilatation: 0cm Effacement: 0% Station: -3 Presentation: Prior US shows Twin A vertex, and Twin B back up Membranes: Intact Uterine Contractions: Occasional FHT's: TWIN A Category: 1 Baseline: 145 Reactive: + Variability: Moderate Decels: Absent TWIN B Category: 1 Baseline:155 Reactive:+ Variability:Moderate Decels: Absent EXTREMITIES: No cyanosis or edema. BACK: Nontender without obvious deformity. No CVA tenderness. NEUROLOGICAL: Awake and alert. Motor and sensory grossly within normal limits. Five out of 5 muscle strength in all muscle groups. Normal speech. Data Data Vital Signs Reviewed: Yes Orders Vital Signs (Adult) .ON ADMISSION (5/29/17 11:42) ^ Labor Status (10/16/16 11:42) Urinalysis - C+S If Indicated (10/16/16 11:42) Lactated Ringer's 1000 Ml Inj (Lr 1000 M (10/16/16 11:42) Fentanyl Inj (Fentanyl Inj) (10/16/16 11:45) Ondansetron Inj (Zofran Inj) (10/16/16 11:45) Terbutaline Inj (Brethine Inj) (10/16/16 11:45) Labs Laboratory Tests Test 10/16/16 11:33 Urine Color YELLOW Urine Turbidity HAZY Urine pH 7.0 Urine Specific [place] 1.018 Urine Protein 30 Urine Glucose (UA) NEG Urine Ketones NEG Urine Occult Blood NEG Urine Nitrite NEG Urine Bilirubin NEG Urine Urobilinogen LESS THAN 2.0 Urine Leukocyte Esterase SMALL Urine RBC 1 Urine WBC 6 Urine Squamous Epithelial 6 Cells Urine Transitional Epithelial <1 Cells Urine Bacteria OCC Urine Granular Casts 1 Urine Mucus FEW Microscopic Urinalysis Comment CULT NOT INDICATED MDM Medical Record Reviewed: Yes Interpretation(s) Pt is a 26 year old with twins at 32/2 weeks gestation (CHRISTINA of ) presenting due to contractions. Twin gestation, Contractions Patient with irregular contractions on toco Bolus of IV LR x1 Terbutaline 0.25 mg SQ x1 Fentanyl 25 g IV x1 UA with no culture indicated Contractions resolved after treatment with the above Pt given prescription for terbutaline 5 mg Q6hrs Patient has already received betamethasone 2 during a prior hospitalization She has an appointment to follow-up with her OB care provider on Sunday Nausea/vomiting Patient with no additional episodes of emesis while in the ED She was given a prescription for Zofran ODT to take as needed sdw Dr. Vallejo, Dr. Edouard Diagnosis Diagnosis: Primary Impression: Threatened labor Qualified Code: O47.03 - Threatened labor, third trimester Additional Impression: Twin Qualified Code: O30.003 - Twin gestation in third trimester, unspecified multiple gestation type Disposition: 01 DISCHARGE HOME Condition: Stable Scripts Ondansetron Odt (Zofran Odt)4 Mg Tab4 Mg SL Q8HR PRN (Nausea/Vomiting) #20 TAB Ref 0 Prov:Jean Claude Sosa MD R2 10/16/16 Terbutaline Sulfate 5 Mg Tab5 Mg PO Q6H #100 TAB Ref 0 Take every 6 hours 3 times/day Prov:Jean Claude Sosa MD R2 10/16/16 Referrals: Product Development Director 1 day Follow up [facility] Ob care provider Jean Claude Sosa MD R2 October 16, 2016 12:25
[2016-10-16] MEDS ORDERED: TERB5 PO ×2 (12:26→12:31)
[2016-10-16] MEDS ORDERED: ZOFR4TAB3 SL (12:31)
== END 2016-10-16 12:52 | disposition home or self-care (01) ==
LOC: HOBED 11:12
DX: O47.00 False labor before 37 completed weeks of gestation, unspecified trimester (principal); O30.003 Twin pregnancy, unspecified number of placenta and unspecified number of amniotic sacs, third trimester
CPT/HCPCS: 81001; 96361; 96372; 96374; 96375; 99284; J2405; J3010; J3105; J7120

== ENCOUNTER 2016-10-18 08:06 | Emergency (ER) | payer BC, MEDICAID ==
[2016-10-18] VITALS (10 sets, daily range): BP systolic 101; BP diastolic 59; PULSE 77–88; RESP 16
[~2016-10-18 08:06] MED LIST changes: +TERB5 PO; +ZOFR4TAB3 SL
[2016-10-18] MEDS ORDERED: LACTATED RINGER'S 1000 ML INJ 1,000 ML IV SCH (09:03)
[2016-10-18] MEDS ORDERED: LACTATED RINGER'S 1000 ML INJ 500 ML IV ONE (09:03)
[2016-10-18] MEDS ORDERED: fentaNYL CITRATE 250 MCG/5 ML AMP IV PUSH ONE (09:15)
[2016-10-18] MEDS ORDERED: TERBUTALINE INJ 1 MG/ML AMP SQ PRN (09:15)
--- NOTE | 2016-10-18 09:20 | PD ---
HPI Chief Complaint Contractions, nausea, vomiting, diarrhea Date Seen: October 18, 2016 Time Seen: 09:00 Travel History International Travel<30 Days: No Contact w/Intl Traveler<30Days: No Known Affected Area: No History of Present Illness HPI Patient is a 26-year-old at 32 weeks and 4 days with twin gestation who presents with contractions, nausea, vomiting, diarrhea. She first noticed some contractions and diarrhea this morning at around 2 AM. She reported nonbloody liquidy diarrhea with some solid pieces more than one episode every hour. She does state that she ate almost entirely watermelon yesterday. She also started having some nausea at that time. She took some Zofran at around 2:45 AM, which helped a little bit. Then at 6:30 to 7 AM she had an episode of nonbilious nonbloody vomiting. She does not know the frequency of her contractions. She notes that she seems to have less frequent and intense contractions since arriving here. She denies any leakage of fluid, vaginal bleeding. She endorses movement. Patient was previously seen by Kathie Oropeza and has been following Dr. Patino in [place]. Para: 2 : 3 History Past Medical History Narrative Medical Asthma, no medication since 13 years old Obstetric History Obstetric History History 2. She has been seen in the OB ED for contractions treated with betamethasone 2, magnesium, terbutaline, fentanyl, IV fluid bolus. Past Surgical History Narrative Surgical 2 Family History Narrative Family History Patient's mother has a history of asthma, heart murmur, unspecified thyroid problem. Social History Narrative Social History Patient lives with her grandmother Rossana Pleitez. Alcohol Use: No Tobacco Use: No Substance Abuse: No Allergies-Medications (Allergen,Severity, Reaction): Coded Allergies: Adhesives (Verified Allergy, Intermediate, Rash, 10/12/16) Latex (Verified Allergy, Mild, Rash, 10/12/16) Home Meds Active Scripts Ondansetron Odt (Zofran Odt)4 Mg Tab4 Mg SL Q8HR PRN (Nausea/Vomiting) #20 TAB Ref 0 Prov:Jean Claude Sosa MD R2 10/16/16 Terbutaline Sulfate 5 Mg Tab5 Mg PO Q6H #100 TAB Ref 0 Take every 6 hours 3 times/day Prov:Jean Claude Sosa MD R2 10/16/16 Promethazine (Phenergan)25 Mg Tab25 Mg PO Q6H PRN (Nausea/Vomiting) #30 TAB Ref 0 Prov:Reshma Fierro MD R1 09/01/16 Vit-Ferrous Fumarate ()1 Tab Tab1 Tab PO DAILY #30 TAB Ref 0 Prov:Griselda Holguin MD 04/22/16 Discontinued Scripts Terbutaline Sulfate 5 Mg Tab5 Mg PO Q6H #100 TAB Ref 0 Take every 6 hours 3 times/day Prov:Jean Claude Sosa MD R2 10/16/16 Review of Systems General / Constitutional: No: Fever, Chills Eyes: No: Visual changes HENT: No: Headaches Cardiovascular: No: Chest Pain or Discomfort, Edema Respiratory: No: Short of Breath Gastrointestinal: Nausea, Vomiting, Diarrhea, Abdominal Pain Genitourinary: No: Dysuria Musculoskeletal: No: Edema Neurologic: No: Headache Physical Exam Afebrile vital signs stable and within normal limits. Narrative GENERAL: Well-nourished, well-developed patient. SKIN: Warm and dry. HEAD: Normocephalic and atraumatic. EYES: No scleral icterus. No injection or drainage. ENT: No nasal drainage noted. Mucous membranes pink. Airway patent. NECK: Supple, trachea midline. No JVD. CARDIOVASCULAR: Regular rate and rhythm without murmurs, gallops, or rubs. RESPIRATORY: Breath sounds equal bilaterally. No accessory muscle use. ABDOMEN/GI: Abdomen soft, non-tender, bowel sounds present, no rebound, no guarding Twin , 32 weeks gestation GENITOURINARY: External Genitalia: intact and normal in appearance Cervix: thick, posterior Dilatation: 0cm Effacement: 0% Station: -3 Presentation: Prior US shows Twin A vertex, and Twin B back up Membranes: Intact Uterine Contractions: q5-8min FHT's: TWIN A Category: 1 Baseline: 140 Reactive: + Variability: Moderate Decels: Absent TWIN B Category: 1 Baseline:150 Reactive:+ Variability:Moderate Decels: Absent EXTREMITIES: No cyanosis or edema. BACK: Nontender without obvious deformity. No CVA tenderness. NEUROLOGICAL: Awake and alert. Motor and sensory grossly within normal limits. Five out of 5 muscle strength in all muscle groups. Normal speech. Data Data Vital Signs Reviewed: Yes Orders Vital Signs (Adult) .ON ADMISSION (10/18/16 09:03) ^ Labor Status (10/18/16 09:03) Urinalysis - C+S If Indicated (10/18/16 09:03) ^ Non Stress Test (10/18/16 09:03) ^ Hydration (10/18/16 09:03) Heart CONTINUOUS (10/18/16 09:03) Lactated Ringer's 1000 Ml Inj (Lr 1000 M (10/18/16 09:03) Lactated Ringer's 1000 Ml Inj (Lr 1000 M (10/18/16 09:03) Terbutaline Inj (Brethine Inj) (10/18/16 09:15) Fentanyl Inj (Fentanyl Inj) (10/18/16 09:15) MDM Plan Pt is a 26 year old with twins at 32/4 weeks gestation (CHRISTINA of ) presenting due to contractions. Twin gestation, Contractions Patient with irregular contractions on toco Stepwise therapy as below: Bolus of IV LR x1, given Terbutaline 0.25 mg SQ x1, given Fentanyl 25 g IV x1 not given UA shows large leukocyte esterase, 6 WBCs, few urine bacteria, culture not indicated Pt given prescription for terbutaline 5 mg Q6hrs after last visit. She has not yet filled this Rx. Patient has already received betamethasone 2 during a prior hospitalization She has an appointment to follow-up with her OB care provider on Sunday Nausea/vomiting/diarrhea Patient with no additional episodes of emesis or diarrhea while in the ED. She was already given a prescription for Zofran ODT to take as needed from her last visit. dw Dr. Pearson and Dr. Vallejo. Diagnosis Diagnosis: Primary Impression: contractions Additional Impressions: Abdominal pain affecting , antepartum Nausea and vomiting during Disposition: DISCHARGE HOME Condition: Dennis Soto MD R1 October 18, 2016 09:20
[2016-10-18 09:33] LABS: BACTERIA, URINE FEW /hpf; BLOOD, URINE NEG (NEG); COMMENT (UR) CULT NOT INDICATED; CULTURE IF INDICATED CULT NOT INDICATED; GLUCOSE,URINE NEG (NEG); KETONE, URINE NEG (NEG); NITRITE,URINE NEG (NEG); SQUAMOUS EPITHELIAL CELL URINE 2 /hpf (0-5); URINE COLOR YELLOW (YELLW/STRAW)
== END 2016-10-18 11:31 | disposition home or self-care (01) ==
LOC: HOBED 08:06
DX: O47.03 False labor before 37 completed weeks of gestation, third trimester (principal); O30.003 Twin pregnancy, unspecified number of placenta and unspecified number of amniotic sacs, third trimester; R19.7 Diarrhea, unspecified; Z3A.32 32 weeks gestation of pregnancy
CPT/HCPCS: 59025; 81001; 96372; 99284; J3105; J7120

== ENCOUNTER 2016-10-31 10:19 | Emergency (ER) | payer BC, MEDICAID ==
[2016-10-31 10:37] VITALS: BP 105/66; PULSE 84
[2016-10-31 10:40] VITALS: PULSE 68
[2016-10-31 10:45] VITALS: RESP 17
--- NOTE | 2016-10-31 11:21 | PD ---
HPI Chief Complaint decreased movement Date Seen: Oct 31, 2016 Time Seen: 11:01 (Gale Sosa MD R1) Travel History International Travel<30 Days: No Contact w/Intl Traveler<30Days: No Known Affected Area: No (Gale Sosa MD R1) History of Present Illness HPI Patient is a 26 year old at 34 and 3/7 weeks gestation, CHRISTINA 12/09/2016, who presents to the OB ED with decreased movement. She denies leakage of fluid, vaginal bleeding. She feels contractions intermittently, possibly [place]. She states she has felt baby A (on the right) regularly but she is unsure if she is feeling baby B, who she notes is transverse. She denies CASTANON/N /V/D/fever/sick contacts/SOB/calf pain/dizziness/seeing spots. OB care is with Dr. Vail in [place]. Her last office visit was 10/26/16. Of note, patient had CTX overnight admission August 31-2016 (at 25 weeks gestation), for which she received BMS IM x 2, Magnesium, and ampicillin. She was discharged September 01 and continues to have intermittent CTX. Para: 2 : 3 (Gale Sosa MD R1) History Past Medical History Medical History: Denies Significant Hx (Gale Sosa MD R1) Obstetric History Obstetric History G1: 2011, 39 and 6, due to distress, male 7 lbs. 14 oz. G2: April 2015, 34 weeks, repeat G3: Current, twin gestation, baby A reportedly vertex (Gale Sosa MD R1) Past Surgical History Narrative Surgical C-sections as above, wisdom teeth Surgical History: No Previous Surgery (Gale Sosa MD) Family History Narrative Family History vitamins Family History: Negative (Gale Sosa MD) Social History Alcohol Use: No Tobacco Use: No Substance Abuse: No (Gale Sosa MD) Allergies-Medications (Allergen,Severity, Reaction): Coded Allergies: Adhesives (Verified Allergy, Intermediate, Rash, 10/31/16) Latex (Verified Allergy, Mild, Rash, 10/31/16) Home Meds Active Scripts Ondansetron Odt (Zofran Odt)4 Mg Tab4 Mg SL Q8HR PRN (Nausea/Vomiting) #20 TAB Ref 0 Prov:Jean Claude Sosa MD R2 10/16/16 Vit-Ferrous Fumarate ()1 Tab Tab1 Tab PO DAILY #30 TAB Ref 0 Prov:Griselda Holguin MD 04/22/16 Discontinued Scripts Terbutaline Sulfate 5 Mg Tab5 Mg PO Q6H #100 TAB Ref 0 Take every 6 hours 3 times/day Prov:Jean Claude Sosa MD R2 10/16/16 Promethazine (Phenergan)25 Mg Tab25 Mg PO Q6H PRN (Nausea/Vomiting) #30 TAB Ref 0 Prov:EkoReshma MD R1 09/01/16 Review of Systems Except as stated in HPI: all other systems reviewed are Neg (Gale Sosa MD R1) Physical Exam Vital Signs Date Time Temp Pulse Resp B/P Pulse Ox O2 Delivery O2 Flow Rate FiO2 10/31/16 10:45 17 10/31/16 10:40 68 10/31/16 10:37 84 105/66 Narrative GENERAL: Well-nourished, well-developed female in no apparent distress. SKIN: Warm and dry. No rashes. HEAD: Normocephalic and atraumatic. EYES: No scleral icterus. No injection or drainage. ENT: No nasal drainage noted. Mucous membranes pink. Airway patent. NECK: Supple, trachea midline. No JVD. CARDIOVASCULAR: Regular rate and rhythm without murmurs, gallops, or rubs. RESPIRATORY: Breath sounds equal bilaterally. No accessory muscle use. BREASTS: Bilateral exam showed no masses , no retractions, no nipple discharge. ABDOMEN/GI: Abdomen soft, non-tender, bowel sounds present, no rebound, no guarding. GENITOURINARY: External Genitalia: intact and normal in appearance Cervix: Closed, thick, high Presentation: Can feel a vertex presentation on exam Membranes: Intact Uterine Contractions: Q 12-14 minutes FHT's: Baby A Category: 1 Baseline: 145 Reactive: y to 160 Variability: mod Decels: absent Baby B Category: 1 Baseline: 140 Reactive: y to 155 Variability: mod Decels: absent EXTREMITIES: No cyanosis or edema. BACK: Nontender without obvious deformity. No CVA tenderness. NEUROLOGICAL: Awake and alert. Motor and sensory grossly within normal limits. Five out of 5 muscle strength in all muscle groups. Normal speech. (Gale Sosa MD R1) Data Data Vital Signs Reviewed: Yes (BP 105/66, pulse 68, respirations 17) Orders Vital Signs (Adult) .ON ADMISSION (10/31/16 10:40) ^ Labor Status (10/31/16 10:40) ^ Non Stress Test (10/31/16 10:40) ^ Hydration (10/31/16 10:40) (Gale Sosa MD R1) MDM Medical Record Reviewed: Yes Narrative Course / MDM 26 year old at 34 and 3/7 weeks who presents for decreased movement. Intrauterine : Baby A: Category 1 tracing Baby B: Category 1 tracing CTX x 3 well spaced on monitor, over 12 minutes apart Cervical exam: closed, thick, high, soft Not in labor Discharge home, f/u with care provider on Twin Gestation: US per patient report showing fetuses with 4+lb each in 32 weeks Continue monitoring with routine ultrasounds per primary care provider SDW Dr. Sales (Gale Sosa MD R1) Diagnosis Diagnosis: Primary Impression: Abdominal pain affecting , antepartum Additional Impression: Twin Disposition: DISCHARGE HOME Condition: Stable Patient Instructions: Early Labor Signs (ED) Attestation Patient seen at bedside. Category 1 tracing of twins. Reports movement upon arrival. Keep next scheduled OB f/u appt. All questions answered. (Alyssa Sales MD) Gale Sosa MD R1 Oct 31, 2016 11:21 Alyssa Sales MD Oct 31, 2016 12:38
== END 2016-10-31 11:39 | disposition home or self-care (01) ==
LOC: HOBED 10:19
DX: O26.893 Other specified pregnancy related conditions, third trimester (principal); R10.9 Unspecified abdominal pain; O30.003 Twin pregnancy, unspecified number of placenta and unspecified number of amniotic sacs, third trimester; Z3A.34 34 weeks gestation of pregnancy
CPT/HCPCS: 59025

== ENCOUNTER 2016-11-17 08:44 | Inpatient (IN) | payer BC, MEDICAID ==
[~2016-11-17] VITALS: Ht 167.6 cm; Wt 71.7 kg
[~2016-11-17 08:44] MED LIST changes: -PROM25TA5 PO; -TERB5 PO
[2016-11-23] VITALS (22 sets, daily range): BP systolic 112–183; BP diastolic 67–119; PULSE 55–92; RESP 16–22; TEMP 97.3–98.3; O2SAT 93–100
[2016-11-23] MEDS ORDERED: LACTATED RINGER'S 1000 ML INJ 1,000 ML IV ONE ×3 (08:42→11:47)
[2016-11-23 08:52] LABS: AUTOMATED NEUTROPHIL # 2.6 TH/MM3 (1.8-7.7); BASOPHIL % 0.3 % (0.0-2.0); EOSINOPHIL % 0.4 % (0.0-4.0); HEMATOCRIT 29.1 % (35.0-46.0); LYMPH % 22.9 % (9.0-44.0); LYMPHOCYTE # 0.9 TH/MM3 (1.0-4.8); MEAN CELL VOLUME 77.1 FL (80.0-100.0); MEAN CORPUSCULAR HGB CONC 32.4 % (32.0-36.0); MONO % 12.2 % (0.0-8.0); NEUT % 64.2 % (16.0-70.0); RED BLOOD COUNT 3.77 MIL/MM3 (4.00-5.30); RED CELL DISTRIBUTION WIDTH 18.1 % (11.6-17.2)
[2016-11-23 08:59] LABS: BACTERIA, URINE OCC /hpf; BLOOD, URINE NEG (NEG); COMMENT (UR) CULTURE INDICATED; CULTURE IF INDICATED CULTURE INDICATED; GLUCOSE,URINE NEG (NEG); KETONE, URINE NEG (NEG); NITRITE,URINE NEG (NEG); SQUAMOUS EPITHELIAL CELL URINE 2 /hpf (0-5); URINE COLOR LIGHT-YELLOW (YELLW/STRAW)
[2016-11-23] MEDS ORDERED: DICLOFENAC SODIUM 37.5 MG/ML VIAL IV PUSH ONE (09:09)
[2016-11-23] MEDS ORDERED: ONDANSETRON HCL 4 MG/2 ML VIAL ONE (09:10)
[2016-11-23] MEDS ORDERED: OXYTOCIN 10 UNIT/ML AMP ONE (09:10)
[2016-11-23] MEDS ORDERED: MORPHINE SULFATE PF 5 MG/10 ML VIAL ONE (09:10)
[2016-11-23 09:29] LABS: HEMO FLAGS AUTO DIFF
[2016-11-23] MEDS: LACTATED RINGER'S 1000 ML INJ 1,000 ML IV SCH ×2 (09:30→21:48)
[2016-11-23 09:37] LABS: OVALOCYTES 1+ (NORMAL); PLATELET ESTIMATE SMEAR LOW (NORMAL)
[2016-11-23 09:38] LABS: PLATELET MORPHOLOGY ENLARGED (NORMAL); SCAN/DIFF AUTO DIFF CONFIRMED
[2016-11-23] MEDS ORDERED: ceFAZolin 2 GM PREMIX 50 ML IV SCH (09:45)
--- NOTE | 2016-11-23 09:57 | HHI.HP ---
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 She is [facility] for repeat versus attempt. Patient's having no complaints or problems at this time. Babies are active. Patient EDC 11/27/16. We discussed the issue at length and felt that we weren't comfortable just not scheduling a and waiting for a the patient wants to try and deliver vaginally if she can. Since she has 2 scars and a distended uterus twin gestation as she describes both twins is head down at this time we just did not feel that there was a good idea to not schedule her . For scheduled for 11/04 she's 39-1/2 weeks, and if she presents in active labor then reevaluation could be done and that she potentially could deliver vaginally if she came in that setting Para: 2 : 3 History (Limited) History Obstetric History Obstetric History 2 previous C-sections she had a delivery at 34 weeks with PROM at 33 weeks for and then and had another section after that Past Surgical History Narrative Surgical 2 C-sections Social History Alcohol Use: No Tobacco Use: No Substance Abuse: No Allergies-Medications Allergies-Medications (Allergen,Severity, Reaction): Coded Allergies: Adhesives (Verified Allergy, Intermediate, Rash, 10/31/16) Latex (Verified Allergy, Mild, Rash, 10/31/16) Home Meds Active Scripts Ondansetron Odt (Zofran Odt)4 Mg Tab4 Mg SL Q8HR PRN (Nausea/Vomiting) #20 TAB Ref 0 Prov:Jean Claude Sosa MD R2 10/16/16 Vit-Ferrous Fumarate ()1 Tab Tab1 Tab PO DAILY #30 TAB Ref 0 Prov:Griselda Holguin MD 04/22/16 ROS Review of Systems General / Constitutional: No: Fever, Weight Gain, Chills, Other Eyes: No: Diploplia, Blurred Vision, Visual changes, Pain, Photophobia HENT: No: Headaches, Vertigo, Lightheadedness Cardiovascular: No: Irregular Rhythm, Chest Pain or Discomfort, Palpitations, Tachycardia, Syncope, Varicosities, Edema, Cyanosis Respiratory: No: Cough, Short of Breath, Other Gastrointestinal: No: Nausea, Vomiting, Diarrhea Genitourinary: No: Decreased Urinary Output, Oliguria Musculoskeletal: No: Limited ROM, Weakness, Cramping, Edema, Pain Skin: No Rash, No Itching, No Dryness, No Lumps, No Change in Pigmentation, No Change in Nails, No Alopecia, No Lesions Neurologic: No: Weakness, Dizziness, Syncope, Focal Abnormalities, Coordination Problem, Headache, Slurred Speech, Seizures Psychiatric: No: Depression, Suicidal Ideations, Homicidal Ideation Endocrine: No: Heat Intolerance, Cold Intolerance, Polydipsia, Polyuria, Other Physical Exam Physical Exam Narrative GENERAL: Well-nourished, well-developed patient. SKIN: Warm and dry. HEAD: Normocephalic and atraumatic. EYES: No scleral icterus. No injection or drainage. ENT: No nasal drainage noted. Mucous membranes pink. Airway patent. NECK: Supple, trachea midline. No JVD. CARDIOVASCULAR: Regular rate and rhythm without murmurs, gallops, or rubs. RESPIRATORY: Breath sounds equal bilaterally. No accessory muscle use. BREASTS: Bilateral exam showed no masses , no retractions, no nipple discharge. ABDOMEN/GI: Abdomen soft, non-tender, bowel sounds present, no rebound, no guarding Gravid to [39-] weeks size Fundal Height: [-] GENITOURINARY: External Genitalia: intact and normal in appearance BUS glands: [-] Cervix: [-0] Dilatation: [-0] Effacement: [-50] Station: [-3] Presentation: [-] Vertex/ vertex according the patient that ultrasound done yesterday in the doctor's office Membranes: [intact ] Uterine Contractions: [none-] FHT's: Category: [1-] /1 Baseline: [-134/144] Reactive: [yes-] Variability: [-mod] Decels: [-0] EXTREMITIES: No cyanosis or edema. BACK: Nontender without obvious deformity. No CVA tenderness. NEUROLOGICAL: Awake and alert. Motor and sensory grossly within normal limits. Five out of 5 muscle strength in all muscle groups. Normal speech. Data Data [facility] MDM Interpretation(s) Patient is 26-year-old black female with twins at 37 weeks presents for C- section . We felt we needed to schedule her for a at 39weeks and then basically if she comes in in labor and in active phase situation prior to that and reevaluate and possibly let her try and deliver vaginally but we felt like we need to schedule a prior to her due date of 11/27/16 Plan Plan scheduled patient for repeat at 39-1/2 weeks on 11/23/16, the patient did not want a tubal ligation, and she wants to breast-feed her babies as soon as possible Diagnosis: 37 week twin gestation, previous 2 Disposition: 01 DISCHARGE HOME Condition: Stable Russell Vallejo II, MD Nov 16, 2016 15:53 Russell Vallejo II, MD Nov 23, 2016 09:57
[2016-11-23] MEDS ORDERED: CITRIC ACID-SODIUM CITRATE LIQ 30 ML UDC PO SCH (10:15)
[2016-11-23] MEDS ORDERED: ZOLPIDEM TARTRATE 5 MG TAB PO PRN (11:45)
[2016-11-23] MEDS ORDERED: oxyCODONE/ACETAMINOPHEN 5 MG/325 MG TAB PO PRN (11:45)
[2016-11-23] MEDS ORDERED: ONDANSETRON HCL 4 MG/2 ML VIAL IV PUSH PRN (11:45)
[2016-11-23] MEDS ORDERED: KETOROLAC TROMETHAMINE 60 MG/2 ML (IM) VIAL IM PRN (11:45)
[2016-11-23] MEDS ORDERED: OXYTOCIN 30 UNITS-500ML PREMIX 500 ML IV ONE (11:45)
[2016-11-23] MEDS ORDERED: SODIUM CHLORIDE 0.9% FLUSH 10 ML FLUSH IV FLUSH PRN (11:45)
[2016-11-23] MEDS ORDERED: FERR324T4 PO (11:51)
[2016-11-23] MEDS ORDERED: diphenhydrAMINE HCL 50 MG/ML VIAL ONE (12:10)
[2016-11-23] MEDS ORDERED: hydrALAZINE HCL 20 MG/ML VIAL ONE (12:23)
[2016-11-23] MEDS ORDERED: LACTATED RINGER'S 1000 ML INJ 1,000 ML IV SCH (16:37)
[2016-11-23] MEDS ORDERED: SODIUM CHLORIDE 0.9% FLUSH 10 ML FLUSH IV FLUSH SCH (21:00)
--- NOTE | 2016-11-23 21:39 | MP ---
cc: RANDALL VALLEJO MD DATE OF SURGERY 11/23/16 PREOPERATIVE DIAGNOSIS 39 week twin gestation, G3, P2. Previous times two, now for repeat . POSTOPERATIVE DIAGNOSIS 39 week twin gestation, G3, P2. Previous times two, now for repeat . PROCEDURE PERFORMED Repeat low transverse section. SURGEON Virgilio Vallejo MD [employer] OPERATOR Dr. Lenz, [facility] ANESTHESIA Spinal. PREOPERATIVE NOTE The patient is a 26-year-old black female, G3, P2 previous section times two at 39 weeks who is for a repeat at this time. PROCEDURE IN DETAIL The patient was taken to the operating room and placed supine position on the operating table. With adequate spinal anesthesia administered she was prepped and draped for abdominal surgery. Her previous Pfannenstiel incision was used and excised out and cast off. The incision carried to the fascia sharply. The fascia dissected off the rectus muscle and the rectus split in the midline. The peritoneal cavity entered sharply. The incision was extended superiorly and inferiorly. The bladder flap placed in the right incision and the visceral peritoneum reflected off the lower uterine segment. This was placed on the bladder blade. A transverse hysterotomy is made and extended bluntly bilaterally. Copious clear fluid noted twin A which is vertex. Twin A was delivered at 10:38 a.m., female, weight 3610 grams, Apgars of 8 and 9. There were no complications. Cord blood obtained. Twin B then in a separate sac was ruptured ___ copious clear fluid and Twin B was a male delivered at 10:39 a.m., weight 2890 grams, 9/9 . There were no complications of the delivery. Cord blood was obtained on both cords. The placenta then manually extracted and there was a completely separate placentas with innervating membranes and all sent to pathology. The cords were tagged with twin A with one clamp and twin B's cord with two umbilical cord clamps. The uterus was elevated and exteriorized, cleaned of all membranes. The cervix was dilated somewhat. The hysterotomy closed in a running layer of 0 Chromic followed by imbricating suture the same. Hemostasis was achieved and the uterus elevated and blood suctioned from the cul-de-sac and gutters. The visceral peritoneum at the bladder flap was reapproximated with a running layer of 2-0 Vicryl. The uterus was replaced in the peritoneal cavity. The parietal peritoneum closed in a running layer of 2-0 Vicryl. The rectus muscles reapproximated with stick ties of Vicryl and chromic. The fascia was then closed in a running layer 0 Vicryl. Subcutaneous tissue was reapproximated in a running layer of 3-0 plain. Skin closed with subcuticular stitch of 3-0 Monocryl. A pressure dressing applied. Estimated blood loss 500 cc. No complications. Sponge, needle counts correct times two. The patient taken to the recovery in stable condition. The babies to well baby nursery. MD TOMAS Driver/LEANNE /11:46 AM /9:21 PM
[2016-11-23] MEDS ORDERED: OXYTOCIN 30 UNITS-500ML PREMIX 500 ML IV PRN (21:45)
[2016-11-24] VITALS: BP 148/58; PULSE 68; RESP 16; TEMP 99.3
[2016-11-24] MEDS: SIMETHICONE 80 MG CHEWABLE TAB PO PRN (00:33)
[2016-11-24] MEDS: DOCUSATE SODIUM 50 MG/SENNA 8.6 MG TAB PO PRN (00:33)
[2016-11-24] MEDS: IBUPROFEN 600 MG TAB PO PRN ×3 (00:33→21:34)
[2016-11-24 05:00] VITALS: BP 100/50; PULSE 72; RESP 16; TEMP 98.7
[2016-11-24 08:45] VITALS: BP 92/60; PULSE 75; RESP 20; TEMP 98.2
[2016-11-24] MEDS: LACTATED RINGER'S 1000 ML INJ 1,000 ML IV SCH ×2 (10:05→18:32)
--- NOTE | 2016-11-24 10:48 | HHI.OB ---
Subjective Post Operative Day: 1 Remarks 26 year old female s/p C/S at 39 wks gestation, POD 1. AFVSS. Patient reports she is feeling well. Bleeding is decreasing and pain is well- controlled. She is breast + formula feeding and bonding well with baby. Ambulating without difficulties. She is tolerating a diet without nausea or vomiting. She has not had a bowel movement. She has passed gas. Denies chest pain, dysuria, shortness of breath, or calf pain. Objective Vitals/I&O Vital Signs Date Time Temp Pulse Resp B/P Pulse Ox O2 Delivery O2 Flow Rate FiO2 11/24/16 08:45 98.2 75 20 92/60 11/24/16 05:00 98.7 72 16 100/50 11/24/16 00:00 99.3 68 16 11/24/16 00:00 148/58 11/23/16 19:50 98.3 18 11/23/16 19:50 70 138/93 11/23/16 18:05 59 16 131/85 11/23/16 14:15 98.1 72 18 127/85 11/23/16 13:25 68 18 99 11/23/16 13:15 113/74 11/23/16 13:10 68 11/23/16 13:10 16 99 11/23/16 13:10 97.7 11/23/16 13:01 112/67 11/23/16 12:55 71 16 11/23/16 12:55 99 11/23/16 12:44 120/73 11/23/16 12:40 18 100 11/23/16 12:39 121/75 11/23/16 12:39 79 11/23/16 12:30 154/92 11/23/16 12:25 92 22 93 11/23/16 12:22 165/107 11/23/16 12:20 174/111 11/23/16 12:18 183/119 11/23/16 12:16 179/117 11/23/16 12:01 18 98 11/23/16 12:00 55 151/68 11/23/16 11:52 18 98 11/23/16 11:51 58 11/23/16 11:51 141/72 11/23/16 11:36 97.3 64 18 116/74 99 Result Diagram: 11/23/16 0830 Objective Remarks GENERAL: Well-nourished, well-developed patient. CARDIOVASCULAR: Regular rate and rhythm without murmurs, gallops, or rubs. RESPIRATORY: Breath sounds equal bilaterally. No accessory muscle use. ABDOMEN/GI: Abdomen soft, non-tender, bowel sounds present. Incision: Covered in bandage which appears clean and dry. Fundus: Firm, non-tender at umbilicus. GENITOURINARY: Light to moderate bleeding. EXTREMITIES: No cyanosis or edema, non-tender, without signs of DVT. Medications and IVs Current Medications Medications (Trade) Dose Ordered Sig/Myrna Route Start Time Stop Time Status Last Admin Lactated Ringer's 1,000 ml @ 150 mls/hr Q6H40M IV 11/23/16 09:12 11/23/16 21:48 (Lr 1000 ml Inj) 1,000 ml @ 100 mls/hr Q10H IV 11/23/16 16:37 11/24/16 12:36 (NS Flush) 2 ml BID IV FLUSH 11/23/16 21:00 (NS Flush) 2 ml UNSCH PRN IV FLUSH 11/23/16 11:45 (Mylicon Chew) 80 mg QID PRN PO 11/23/16 11:45 11/24/16 00:33 (Tylenol) 650 mg Q6H PRN PO 11/23/16 11:45 (Motrin) 600 mg Q6H PRN PO 11/23/16 11:45 11/24/16 00:33 (Toradol Inj) 30 mg Q6H PRN IM 11/23/16 11:45 11/24/16 11:44 (Percocet 5-325 Mg) 1 tab Q4H PRN PO 11/23/16 11:45 (Percocet 5-325 Mg) 2 tab Q4H PRN PO 11/23/16 11:45 (Deandra-Colace) 2 tab Q12H PRN PO 11/23/16 11:45 11/24/16 00:33 (Ambien) 5 mg HS PRN PO 11/23/16 11:45 (M-M-R Ii Inj) 0.5 ml ONCE ONCE SQ 11/24/16 16:00 11/24/16 16:01 (Boostrix Inj) 0.5 ml ONCE ONCE IM 11/24/16 16:00 11/24/16 16:01 (Zofran Inj) 4 mg Q6H PRN IV PUSH 11/23/16 11:45 11/23/16 18:57 Assessment/Plan Problem List: (1) delivery delivered (2) Twin Assessment and Plan 26 yo female s/p C/S POD 1. - AFVSS - Continue routine care - Motrin and Percocet PRN pain - Encourage OOB - Pelvic rest x 6 wks. Will need incision check in 1 week - Contraception: Undecided - Anticipate D/C 11/26 Raymundo Hercules MD R1 Nov 24, 2016 10:48
[2016-11-24 12:21] LABS: HEMATOCRIT 27.6 % (35.0-46.0)
[2016-11-24 12:29] LABS: REVIEW FLAG FINAL
[2016-11-24] MEDS: ACETAMINOPHEN 325 MG TAB PO PRN ×2 (13:38→21:35)
[2016-11-24] MEDS ORDERED: DIPHTH/TETANUS/ACEL PERTUSSIS (BOOSTER) 0.5 ML VIAL/PFS IM ONE (16:00)
[2016-11-24] MEDS ORDERED: MEASLES, MUMPS, RUBELLA VACCINE 0.5 ML VIAL SQ ONE (16:00)
[2016-11-24 20:00] VITALS: BP 107/61; PULSE 74; RESP 18; TEMP 98.1
[2016-11-25] MEDS: IBUPROFEN 600 MG TAB PO PRN ×4 (03:17→21:16)
[2016-11-25] MEDS: oxyCODONE/ACETAMINOPHEN 5 MG/325 MG TAB PO PRN ×4 (03:18→21:16)
[2016-11-25 08:00] VITALS: BP 104/68; PULSE 62; RESP 16; TEMP 98.1
[2016-11-25 08:35] VITALS: RESP 18
[2016-11-25] MEDS: DOCUSATE SODIUM 50 MG/SENNA 8.6 MG TAB PO PRN ×2 (08:36→21:16)
[2016-11-25] MEDS: SIMETHICONE 80 MG CHEWABLE TAB PO PRN (08:37)
--- NOTE | 2016-11-25 10:02 | HHI.OB ---
Subjective Post Operative Day: 2 Remarks Pt seen and examined this morning. Postoperative day # 2 AFVSS overnight. Incision nondraining currently covered with sterile bandage. Decreased lochia. Denies dysuria. No breast tenderness. She is feeding the baby via breast and bottle. Appetite good. No nausea or vomiting. Patient endorses bowel gas, but has not had a bowel movement as of yet. Ambulating well. Denies calf pain or shortness of breath. Otherwise, she is doing well this morning and has no other concerns. Objective Vitals/I&O Vital Signs Date Time Temp Pulse Resp B/P Pulse Ox O2 Delivery O2 Flow Rate FiO2 11/25/16 08:35 18 11/25/16 08:00 98.1 62 16 104/68 11/25/16 08:00 98.1 62 16 104/68 11/24/16 20:00 98.1 74 18 107/61 Result Diagram: 11/24/16 1135 Objective Remarks GENERAL: Well-nourished, well-developed patient. CARDIOVASCULAR: Regular rate and rhythm without murmurs, gallops, or rubs. RESPIRATORY: Breath sounds equal bilaterally. No accessory muscle use. ABDOMEN/GI: Abdomen soft, non-tender, bowel sounds present. Incision: Covered in bandage which appears clean and dry. Fundus: Firm, non-tender at umbilicus. GENITOURINARY: Light to moderate bleeding. EXTREMITIES: No cyanosis or edema, non-tender, without signs of DVT. Medications and IVs Current Medications Medications (Trade) Dose Ordered Sig/Myrna Route Start Time Stop Time Status Last Admin (Lr 1000 ml Inj) 1,000 ml @ 150 mls/hr Q6H40M IV 11/23/16 09:12 11/23/16 21:48 (NS Flush) 2 ml BID IV FLUSH 11/23/16 21:00 (NS Flush) 2 ml UNSCH PRN IV FLUSH 11/23/16 11:45 (Mylicon Chew) 80 mg QID PRN PO 11/23/16 11:45 11/25/16 08:37 (Tylenol) 650 mg Q6H PRN PO 11/23/16 11:45 11/24/16 21:35 (Motrin) 600 mg Q6H PRN PO 11/23/16 11:45 11/25/16 08:37 (Percocet 5-325 Mg) 1 tab Q4H PRN PO 11/23/16 11:45 11/25/16 08:37 (Percocet 5-325 Mg) 2 tab Q4H PRN PO 11/23/16 11:45 (Deandra-Colace) 2 tab Q12H PRN PO 11/23/16 11:45 11/25/16 08:36 (Ambien) 5 mg HS PRN PO 11/23/16 11:45 (Zofran Inj) 4 mg Q6H PRN IV PUSH 11/23/16 11:45 11/23/16 18:57 Assessment/Plan Problem List: (1) delivery delivered (2) Twin Assessment and Plan 26 yo female s/p C/S POD 1. - AFVSS - Continue routine care - Motrin and Percocet PRN pain - Encourage OOB - Pelvic rest x 6 wks. Will need incision check in 1 week - Contraception: Undecided, we will discuss with OB at follow-up visit - Anticipate D/C 11/26 pending clinical course Dony Crandall MD R1 Nov 25, 2016 10:02
--- NOTE | 2016-11-25 10:06 | HHI.DCPOC ---
Discharge Care Plan Diagnosis: (1) delivery delivered (2) Twin Report Symptoms to Your Doctor -Temperature above 100.5 degrees -Redness, of incision or excessive or foul smelling drainage -Unusual pain or calf pain -Increased vaginal bleeding -Painful or difficulty urinating -Feelings of extreme sadness or anxiety after 2 weeks Goals to Promote Your Health * To prevent worsening of your condition and complications * To maintain your health at the optimal level Directions to Meet Your Goals Take your medications as prescribed Follow your dietary instruction Follow activity as directed Ensure plenty of rest for recovery Drink fluids for hydration Keep your appointments as scheduled Take your immunizations and boosters as scheduled If your symptoms worsen call your PCP, if no PCP go to Urgent Care Center or Emergency Room Smoking is Dangerous to Your Health. Avoid second hand smoke Call the 24-hour crisis hotline for domestic abuse at Dony Crandall MD R1 Nov 25, 2016 10:06
[2016-11-25] MEDS ORDERED: SENN1TAB PO (10:09)
[2016-11-25] MEDS ORDERED: IBUP-232 PO (10:09)
[2016-11-25 12:00] VITALS: RESP 18
[2016-11-25 14:15] VITALS: RESP 18
[2016-11-26 08:05] VITALS: BP 134/79; PULSE 80; RESP 17; TEMP 98
[2016-11-26] MEDS: oxyCODONE/ACETAMINOPHEN 5 MG/325 MG TAB PO PRN ×2 (08:09→15:02)
[2016-11-26] MEDS: IBUPROFEN 600 MG TAB PO PRN ×2 (08:10→15:02)
[2016-11-26] MEDS ORDERED: OXYC1TAB63 PO (08:54)
[2016-11-26] MEDS ORDERED: AMOX500C PO (08:54)
--- NOTE | 2016-11-26 10:17 | HHI.OB ---
Subjective Post Operative Day: 3 Remarks Pt seen and examined this morning. Postoperative day # 3 AFVSS overnight. Incision nondraining. Decreased lochia. Denies dysuria. No breast tenderness. She is feeding the baby via breast and bottle. Appetite good. No nausea or vomiting. Patient endorses bowel gas and movement. Ambulating well. Denies calf pain or shortness of breath. Otherwise, she is doing well this morning and has no other concerns. Objective Vitals/I&O Vital Signs Date Time Temp Pulse Resp B/P Pulse Ox O2 Delivery O2 Flow Rate FiO2 11/26/16 08:05 98.0 80 17 134/79 11/25/16 14:15 18 11/25/16 12:00 18 Result Diagram: 11/24/16 1135 Objective Remarks GENERAL: Well-nourished, well-developed patient. CARDIOVASCULAR: Regular rate and rhythm without murmurs, gallops, or rubs. RESPIRATORY: Breath sounds equal bilaterally. No accessory muscle use. ABDOMEN/GI: Abdomen soft, non-tender, bowel sounds present. Incision: Covered in bandage which appears clean and dry. Fundus: Firm, above the umbilicus (likely secondary small, thin body habitus with twin ). GENITOURINARY: Light to moderate bleeding. EXTREMITIES: No cyanosis or edema, non-tender, without signs of DVT. Medications and IVs Current Medications Medications (Trade) Dose Ordered Sig/Myrna Route Start Time Stop Time Status Last Admin (Lr 1000 ml Inj) 1,000 ml @ 150 mls/hr Q6H40M IV 11/23/16 09:12 11/23/16 21:48 (NS Flush) 2 ml BID IV FLUSH 11/23/16 21:00 (NS Flush) 2 ml UNSCH PRN IV FLUSH 11/23/16 11:45 (Mylicon Chew) 80 mg QID PRN PO 11/23/16 11:45 11/25/16 08:37 (Tylenol) 650 mg Q6H PRN PO 11/23/16 11:45 11/24/16 21:35 (Motrin) 600 mg Q6H PRN PO 11/23/16 11:45 11/26/16 08:10 (Percocet 5-325 Mg) 1 tab Q4H PRN PO 11/23/16 11:45 11/26/16 08:09 (Percocet 5-325 Mg) 2 tab Q4H PRN PO 11/23/16 11:45 (Deandra-Colace) 2 tab Q12H PRN PO 11/23/16 11:45 11/25/16 21:16 (Ambien) 5 mg HS PRN PO 11/23/16 11:45 (Zofran Inj) 4 mg Q6H PRN IV PUSH 11/23/16 11:45 11/23/16 18:57 (Trimox) 500 mg TID PO 11/26/16 09:00 Assessment/Plan Problem List: (1) delivery delivered (2) Twin Assessment and Plan 26 yo female s/p C/S POD 3. - AFVSS - Continue routine care - Motrin and Percocet PRN pain - Encourage OOB - Pelvic rest x 6 wks. Will need incision check in 1 week - Contraception: Undecided, discuss with OB at follow-up visit - Urine culture with staph epidermidis, plan to treat with Amoxicillin 500mg TID for 3 days - Anticipate D/C today, 11/26 Discharge Planning Today Dony Crandall MD R1 Nov 26, 2016 10:17
[2016-11-26] MEDS: DOCUSATE SODIUM 50 MG/SENNA 8.6 MG TAB PO PRN (11:06)
[2016-11-26] MEDS: AMOXICILLIN (TRIHYDRATE) 500 MG CAP PO SCH ×2 (11:06→15:02)
[2016-11-26 15:00] VITALS: BP 117/69; PULSE 72; RESP 18; TEMP 99.1
== END 2016-11-26 18:38 | disposition home or self-care (01) | DRG 765 ==
LOC: H2EB 11-23 07:58 → H1EA 11-23 13:34
PROVIDERS: ADMIT Obstetrics & Gynecology Maternal & Fetal Medicine; ATTEND Obstetrics & Gynecology Maternal & Fetal Medicine
PROC: 10D00Z1 Extraction of Products of Conception, Low, Open Approach (ICD-10-PCS; principal; 2016-11-23)
DX: O34.211 Maternal care for low transverse scar from previous cesarean delivery (principal); O30.043 Twin pregnancy, dichorionic/diamniotic, third trimester; Z37.2 Twins, both liveborn; Z3A.39 39 weeks gestation of pregnancy
CPT/HCPCS: 59025; 81001; 85014; 85018; 85025; 86403; 86850; 86900; 86901; 87077; 87086; 87186; 88307; J0360; J0690; J1130; J1200; J2274; J2405; J2590; J7120

== ENCOUNTER 2016-11-18 23:00 | Emergency (ER) | payer BC, MEDICAID ==
--- NOTE | 2016-11-18 23:47 | PD ---
HPI Chief Complaint Contractions and leaking fluid Date Seen: Nov 18, 2016 Time Seen: 23:30 Travel History International Travel<30 Days: No Contact w/Intl Traveler<30Days: No Known Affected Area: No History of Present Illness HPI 26-year-old 3 para 2 at 38+ weeks gestation with dichorionic diamniotic twins who reports nightly with contractions which she states have been going on for couple of weeks and possible leakage of fluid. She denies any bleeding. She reports good movement. No vaginal discharge. Para: 2 : 3 History Past Medical History Medical History: Denies Significant Hx Obstetric History Obstetric History 2 prior lower transverse C-sections care this with Dr. Egan. She reports negative GBS this week , ultrasound on Sunday demonstrated vertex vertex presentation Past Surgical History Narrative Surgical 2 Family History Family History: Negative Social History Alcohol Use: No Tobacco Use: No Substance Abuse: No Allergies-Medications (Allergen,Severity, Reaction): Coded Allergies: Adhesives (Verified Allergy, Intermediate, Rash, 10/31/16) Latex (Verified Allergy, Mild, Rash, 10/31/16) Home Meds Active Scripts Ondansetron Odt (Zofran Odt)4 Mg Tab4 Mg SL Q8HR PRN (Nausea/Vomiting) #20 TAB Ref 0 Prov:Jean Claude Sosa MD R2 10/16/16 Vit-Ferrous Fumarate ()1 Tab Tab1 Tab PO DAILY #30 TAB Ref 0 Prov:Griselda Holguin MD 04/22/16 Review of Systems Except as stated in HPI: all other systems reviewed are Neg Physical Exam Narrative GENERAL: Well-nourished, well-developed patient. SKIN: Warm and dry. HEAD: Normocephalic and atraumatic. EYES: No scleral icterus. No injection or drainage. ENT: No nasal drainage noted. Mucous membranes pink. Airway patent. NECK: Supple, trachea midline. No JVD. CARDIOVASCULAR: Regular rate and rhythm without murmurs, gallops, or rubs. RESPIRATORY: Breath sounds equal bilaterally. No accessory muscle use. ABDOMEN/GI: Abdomen soft, non-tender, bowel sounds present, no rebound, no guarding Gravid to [-] weeks size Fundal Height: [-44] GENITOURINARY: External Genitalia: intact and normal in appearance BUS glands: [-] Cervix: [-] Dilatation: [Closed-] Effacement: [-50] Station: [--3] Presentation: [Vertex] Membranes: [intact , negative amnio sure] Uterine Contractions: [-Irregular] FHT's: Category: [-] Baseline: [-] Reactive: [2-] Variability: [-] Decels: [-] EXTREMITIES: No cyanosis or edema. BACK: Nontender without obvious deformity. No CVA tenderness. NEUROLOGICAL: Awake and alert. Motor and sensory grossly within normal limits. Five out of 5 muscle strength in all muscle groups. Normal speech. Data Data Vital Signs Reviewed: Yes MDM Medical Record Reviewed: Yes Narrative Course / MDM Assessment: 38+ week dichorionic twins Plan: Follow up as needed, scheduled is November 23 Diagnosis Diagnosis: Primary Impression: Twin Disposition: 01 DISCHARGE HOME Condition: Good Bob Leon MD Nov 18, 2016 23:47
== END 2016-11-19 00:16 | disposition home or self-care (01) ==
LOC: HOBED 23:00
DX: O30.043 Twin pregnancy, dichorionic/diamniotic, third trimester (principal); Z3A.38 38 weeks gestation of pregnancy
CPT/HCPCS: 84112; 99281

== ENCOUNTER 2017-05-25 11:07 | Emergency (ER) | payer OTHER, MEDICAID ==
[~2017-05-25] VITALS: Ht 165.1 cm; Wt 56.8 kg
[~2017-05-25 11:07] MED LIST changes: +AMOX500C PO; +FERR324T4 PO; +IBUP-232 PO; +OXYC1TAB63 PO; +SENN1TAB PO; -ZOFR4TAB3 SL
[2017-05-25 11:08] VITALS: BP 105/70; PULSE 69; RESP 16; TEMP 98.3; O2SAT 100
[2017-05-25] MEDS ORDERED: ROBA500T PO (12:12)
[2017-05-25] MEDS ORDERED: IBUP1TAB7 PO (12:12)
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
[2017-05-25] MEDS ORDERED: IBUPROFEN 600 MG TAB PO ONE (12:15)
[2017-05-25] MEDS ORDERED: METHOCARBAMOL 500 MG TAB PO ONE (12:15)
== END 2017-05-25 12:56 | disposition home or self-care (01) ==
LOC: NEPD 11:07
DX: S46.812A Strain of other muscles, fascia and tendons at shoulder and upper arm level, left arm, initial encounter (principal); V89.2XXA Person injured in unspecified motor-vehicle accident, traffic, initial encounter
CPT/HCPCS: 99283

== ENCOUNTER 2017-09-14 19:28 | Emergency (ER) | payer MEDICAID, BC ==
[2017-09-14] MEDS: IBUPROFEN 600 MG TAB PO (22:58)
== END 2017-09-14 23:06 | disposition home or self-care (01) ==
LOC: NEPD 19:28
DX: R07.89 Other chest pain (principal)
CPT/HCPCS: 71045; 99283